=== PATIENT | male | born 1960 | race American Indian/Alaskan Native ===

== ENCOUNTER 2016-05-04 08:42 | Inpatient (IN) | payer MEDICARE ==
--- NOTE | 2016-05-04 16:10 | Emergency Department Report ---
ED Lower Extremity HPI - General Chief Complaint: Extremity Injury, Lower Stated Complaint: SEVERE LT LEG /FOOT PAIN Time Seen by Provider: 05/04/16 15:46 Source: patient Mode of arrival: Ambulatory Limitations: No Limitations - History of Present Illness Initial Comments: Patient is a 55-year-old male with history of Crohn's disease, PTSD and HIV with progression to AIDS taking medication inconsistently presenting today because of left toe pain. Patient has been having symptoms since February 23. States that he was at [facility] yesterday where he underwent a resection of the left toe necrosis and osteomyelitis and states that he was supposed to stay admitted for prolonged course of IV antibiotics but patient left AGAINST MEDICAL ADVICE because he requested coffee and did not receive it in a timely fashion. Patient mainly complaining about pain but denies any fever. - Related Data Home Medications Medication Instructions Recorded Confirmed Last Taken Abacavir/Dolutegravir/Lamivudi 1 each PO QDAY 01/14/16 05/05/16 Unknown [Triumeq Tablet] Dicyclomine [Bentyl] 20 mg PO TID 01/14/16 05/05/16 Unknown Previous Rx's Medication Instructions Recorded Last Taken Type traMADol [Ultram 50 MG tab] 50 mg PO Q6HR PRN #20 tablet 03/25/15 Unknown Rx Furosemide [Lasix] 20 mg PO QDAY #7 tablet 04/12/16 Unknown Rx HYDROcodone/APAP 5-325 [[place] 1 - 2 each PO Q6HR PRN #14 tablet 04/12/16 Unknown Rx 5/325] HYDROcodone/APAP 5-325 [[place] 1 - 2 each PO Q6HR PRN #14 tablet 04/22/16 Unknown Rx 5/325] Promethazine [Phenergan TAB] 25 mg PO Q6HR PRN #20 tab 04/22/16 Unknown Rx Promethazine [Phenergan] 25 mg [place] Q6HR PRN #10 supp.rect 04/22/16 Unknown Rx Allergies Allergy/AdvReac Type Severity Reaction Status Date / Time No Known Allergies Allergy Verified 09/07/15 11:34 ED Review of Systems ROS: Stated complaint: SEVERE LT LEG /FOOT PAIN Other details as noted in HPI Comment: All other systems reviewed and negative Constitutional: denies: chills, fever ENT: denies: congestion Respiratory: denies: cough Cardiovascular: denies: chest pain Gastrointestinal: abdominal pain (chronic abdominal pain). denies: vomiting Skin: lesions Psychiatric: denies: anxiety ED Past Medical Hx - Past Medical History Hx Liver Disease: Yes (HEP B) Hx Sickle Cell Disease: Yes Hx Psychiatric Treatment: Yes (IP and OP MANIC DEPRESSION) Hx HIV: Yes Additional medical history: PANCREATITIS. CROHN'S - Surgical History Hx Cholecystectomy: (colon resection) Hx Appendectomy: Yes Additional Surgical History: COLON. RIGHT HIP REPLACEMENT. Tonsillectomy - Social History Smoking Status: Current Every Day Smoker Substance Use Type: Alcohol - Medications Home Medications: Home Medications Medication Instructions Recorded Confirmed Last Taken Type traMADol [Ultram 50 MG tab] 50 mg PO Q6HR PRN #20 tablet 03/25/15 Unknown Rx Abacavir/Dolutegravir/Lamivudi 1 each PO QDAY 01/14/16 05/05/16 Unknown History [Triumeq Tablet] Dicyclomine [Bentyl] 20 mg PO TID 01/14/16 05/05/16 Unknown History Furosemide [Lasix] 20 mg PO QDAY #7 tablet 04/12/16 05/05/16 Unknown Rx HYDROcodone/APAP 5-325 [[place] 1 - 2 each PO Q6HR PRN #14 tablet 04/12/16 Unknown Rx 5/325] HYDROcodone/APAP 5-325 [[place] 1 - 2 each PO Q6HR PRN #14 tablet 04/22/16 Unknown Rx 5/325] Promethazine [Phenergan TAB] 25 mg PO Q6HR PRN #20 tab 04/22/16 05/05/16 Unknown Rx Promethazine [Phenergan] 25 mg [place] Q6HR PRN #10 supp.rect 04/22/16 05/05/16 Unknown Rx ED Physical Exam - General Limitations: No Limitations General appearance: alert, in no apparent distress - Eye Eye exam: Present: normal appearance - Neck Neck exam: Present: normal inspection - Respiratory Respiratory exam: Present: normal lung sounds bilaterally - Cardiovascular Cardiovascular Exam: Present: regular rate, normal heart sounds - GI/Abdominal GI/Abdominal exam: Present: soft. Absent: tenderness - Extremities Exam Extremities exam: Present: other (Left 2nd toe with mulitple sutures without any discharge, no fluctuance or active discharge, no crepitus, sensation intact , capillary refill < 2 seconds, has diffuse mild tenderness to the entire foot) - Neurological Exam Neurological exam: Present: alert, oriented X3 - Psychiatric Psychiatric exam: Present: other (labile affect) - Skin Skin exam: Present: intact ED Course Vital Signs 05/04/16 05/04/16 05/04/16 08:50 15:15 17:08 Temperature 98.2 F 98.1 F 98 F Pulse Rate 111 H 110 H 105 H Respiratory 20 16 Rate Blood Pressure 132/89 137/85 Blood Pressure 149/78 [Left] O2 Sat by Pulse 99 100 100 Oximetry 05/04/16 22:43 Temperature Pulse Rate 90 Respiratory 16 Rate Blood Pressure Blood Pressure 130/67 [Left] O2 Sat by Pulse 97 Oximetry - Reevaluation(s) Reevaluation #1: 05/05/16 00:51 Received paperwork from his stay at [place], he shouldn't did indeed have osteomyelitis of the left second toe and is status post amputation and left AMA yesterday. I spoke to patient about whether he wanted to stay for IV antibiotics. Patient states that he does want stay for treatment. - EJ/Peripheral Line Neck R Time Out Performed: Yes Indications: nurses unable to establis Skin Cleansed in Sterile Fashion: Yes Size: 20 Dressing Placed: Tegaderm Patient Tolerated Procedure: well Additional Comments: 2x attempts at right EJ without success; success with first attempt but stopped working after some time, second EJ IV placed with good flow ED Lower Extremity MDM - Lab Data Result diagrams: 05/04/16 16:47 05/04/16 16:47 - Medical Decision Making Patient does not appear clinically ill, concern for possible indolent osteomyelitis, exam however is unremarkable IV, labs, pain meds, xray, IVF due to mild tachycardia, reassess Critical care attestation.: If time is entered above; I have spent that time in minutes in the direct care of this critically ill patient, excluding procedure time. ED Disposition Clinical Impression: Osteomyelitis Qualifiers: Osteomyelitis location: foot Laterality: left Chronicity: subacute Qualified Code(s): M86.272 - Subacute osteomyelitis, left ankle and foot Disposition: OP ADMITTED IP TO THIS HOSP Is pt being admited?: Yes Does the pt Need Aspirin: No Condition: Serious Referrals: PRIMARY CARE, [Primary Care Provider] - 3-5 Days Time of Disposition: 02:00 (Discussed with hospitalist)
[2016-05-04] MEDS ORDERED: PERCOCET 5/325 PO ONE (16:13)
[2016-05-04] MEDS ORDERED: NACL 0.9% 1000 ML IV ONE (16:30)
[2016-05-04 17:03] LABS: Basophils % (Auto) 1.4 % (0.0-1.8); Eosinophils % (Auto) 2.8 % (0.0-4.3); Hematocrit 30.6 % (35.5-45.6); Mean Corpuscular HGB Conc 33 % (32-34); Mean Corpuscular Hemoglobin 31 pg (28-32); Mean Corpuscular Volume 93 fl (84-94); Platelet Count 227 K/mm3 (140-440); Red Blood Count 3.28 M/mm3 (3.65-5.03); Red Cell Distribution Width 14.9 % (13.2-15.2); White Blood Count 5.2 K/mm3 (4.5-11.0)
[2016-05-04 17:13] LABS: Blood Urea Nitrogen 7 mg/dL (9-20); Calcium 7.8 mg/dL (8.4-10.2); Carbon Dioxide 18 mmol/L (22-30); Chloride 107.1 mmol/L (98-107); Glucose 119 mg/dL (75-100); Potassium 3.3 mmol/L (3.6-5.0); Sodium 140 mmol/L (137-145)
[2016-05-04 17:14] LABS: Anion Gap 18 mmol/L
[2016-05-04] MEDS ORDERED: K-DUR PO ONE (17:48)
[2016-05-04] MEDS ORDERED: XYLOCAINE 1% MPF 5 mL INFILTRATI ONE (18:02)
[2016-05-04] MEDS ORDERED: VANCOMYCIN VIAL IV ONE (18:05)
[2016-05-04] MEDS ORDERED: ROCEPHIN 2,000 MG in NACL 0.9% 50 ML IV ONE (18:20)
[2016-05-04] MEDS ORDERED: VANCOMYCIN PHARMACY TO DOSE IV SCH (19:00)
[2016-05-04] MEDS ORDERED: KLOR-CON PO SCH (19:00)
[2016-05-04] MEDS ORDERED: ROCEPHIN/NS 2 GM/100 ML 100 ML IV ONE (19:30)
[2016-05-04] MEDS ORDERED: NACL 0.9% 1000 ML 1,000 ML ONE (19:53)
[2016-05-04] MEDS: K-DUR PO SCH (20:06)
[2016-05-04] MEDS: VANCOMYCIN VIAL 1,500 MG in NACL 0.9% 500 ML 500 ML IV SCH (20:46)
[2016-05-04 22:34] LABS: ISTAT Base Excess -7; ISTAT DEVICE 0; ISTAT HCO3 19.1; ISTAT PCO2 37.6 (35-45); ISTAT PH 7.314 (7.35-7.45); ISTAT PO2 88 (80-105); ISTAT SO2 96; ISTAT TCO2 20
--- NOTE | 2016-05-05 01:44 | Admit Criteria Form ---
Admission Criteria Documentation: OSTEOMYELITIS Clinical Indications for Admission to Inpatient Care (Place 'X' for any and all applicable criteria) Admission is indicated by ANY ONE of the following (1)(2)(3)(4)(5)(6): [ ] I. Significant systemic illness indicated by 2 or more of the following: [ ]a) Core (eg rectal) temperature greater or equal [id number](37.8C) in an adult [ ]b) Oral temperature[A] greater than or equal to 99.3 degrees F ( 37.4 degrees C) in an adult [ ]c) Heart rate greater than 90 beats per minute [ ]d) Respiratory rate greater than 20 breaths per minute or PaCO2 less than 32 mm Hg (4.3 kPa) [ ]e) White blood cell count > 12,000/mm3 (12 x109/L) or < 4000/mm3 ( 4 x109/L) or > 10% band cells [ ] II. Hemodynamic instability [ ] III. Severe pain requiring acute inpatient management [ ] IV. Bacteremia [ ] V. Mental status change (new) [ ] . Limb-threatening infection [ ] VII. Suspected necrotizing soft tissue infection (e.g., gas in tissue) [ ] VIII.Surgical intervention required (e.g., bone or soft tissue debridement, removal of foreign body, or revascularization procedure) not performable in outpatient or emergency department level of care(7) [ X] IX. Appropriate monitoring and therapy (IV antibiotics) cannot be immediately arranged for home or outpatient setting [ ] XI. Outpatient treatment failure (e.g., resistant organism identified, adverse medication effect, progression or lack of sufficient improvement of infection) [ ] XII. High-risk comorbid condition present including ANY ONE of the following : [ ]a) Poorly controlled diabetes (e.g., HbA1c greater than 10% (0.1)) [ ]b) Vascular insufficiency to affected area [ ]c) Cirrhosis [ ]d) Neutropenia [ ]e) Asplenia [ ]f) Immunosuppression (e.g., chronic systemic corticosteroid use) [ ]g) Symptomatic heart failure [ ] XIII.Joint involvement (e.g., septic arthritis) suspected [ ] XIV. Vertebral osteomyelitis [ ] XV. Skull-base osteomyelitis (e.g.,"malignant external otitis")[A](8)(9)(10 ) Extended stay beyond goal length of stay may be needed for(1)(3)(4)(5)(24)(25): [ ]a) Inadequate clinical response to antibiotics (e.g., continued fever, hypotension) [ ]b) Bacteremia [ ]c) Surgical intervention needed (e.g., beyond superficial debridement)(26) [ ]d) Vertebral osteomyelitis with spinal cord compression, abscess formation, or mechanical instability [ ]e) Antibiotic-resistant organism identified (e.g., methicillin-resistant Staphylococcal aureus) [ ]f) Deep venous thrombosis [ ]g) Unstable comorbidities (e.g., heart failure, renal insufficiency, immunosuppressed state)(28) The original [facility] [employer] content created by [employer] has been revised. The portions of the content which have been revised are identified through the use of italic text or in bold, and [facility] has neither reviewed nor approved the modified material. All other unmodified content is copyright [facility] 2016. Admission Criteria Met: Yes
--- NOTE | 2016-05-05 05:32 | History and Physical Report ---
[id number] with a history of HIV, unknown CD4 count, Crohn's disease, sickle cell, PTSD was admitted at [facility] where he was diagnosed with osteomyelitis of the left second toe, status post amputation of the distal toe on Sunday. Patient has been receiving IV antibiotics, he had some behavioral issues at the hospital, he stated that he left AMA however review of the records from [place] seen as if he was discharged. It's unclear what antibiotics the patient was discharged on. The patient is scheduled to receive 6 weeks of antibiotics Patient denies chest pain, palpitation, shortness of breath, cough, abdominal pain, hematochezia, dysuria, frequency, focal weakness, dysarthria, fever chills , polydipsia polyuria, hot or cold intolerance, easy bruisability, or rash or bleeding from mucosal membrane, rhinorrhea, epistaxis, earache, tinnitus, blurry vision, eye discharge, anxiety, depression. Other review of systems negative PAST SURGICAL HISTORY: Colon resection, tonsillectomy, appendectomy, right hip SOCIAL HISTORY: Smoke 2 pack a week, alcohol use, no drugs FAMILY HISTORY: Hypertension Medications and Allergies Allergies Allergy/AdvReac Type Severity Reaction Status Date / Time No Known Allergies Allergy Verified 09/07/15 11:34 Home Medications Medication Instructions Recorded Confirmed Last Taken Type traMADol [Ultram 50 MG tab] 50 mg PO Q6HR PRN #20 tablet 03/25/15 Unknown Rx Abacavir/Dolutegravir/Lamivudi 1 each PO QDAY 01/14/16 05/05/16 Unknown History [Triumeq Tablet] Dicyclomine [Bentyl] 20 mg PO TID 01/14/16 05/05/16 Unknown History Furosemide [Lasix] 20 mg PO QDAY #7 tablet 04/12/16 05/05/16 Unknown Rx HYDROcodone/APAP 5-325 [[place] 1 - 2 each PO Q6HR PRN #14 tablet 04/12/16 Unknown Rx 5/325] HYDROcodone/APAP 5-325 [[place] 1 - 2 each PO Q6HR PRN #14 tablet 04/22/16 Unknown Rx 5/325] Promethazine [Phenergan TAB] 25 mg PO Q6HR PRN #20 tab 04/22/16 05/05/16 Unknown Rx Promethazine [Phenergan] 25 mg [place] Q6HR PRN #10 supp.rect 04/22/16 05/05/16 Unknown Rx Depakote ER 500 mg PO DAILY 05/05/16 05/05/16 Unknown History risperiDONE 3 mg PO DAILY 05/05/16 05/05/16 Unknown History Active Meds: Active Medications Vancomycin HCl 1,500 mg/ (Sodium Chloride) 500 mls @ 250 mls/hr IV Q12H [facility] Last Admin: 05/04/16 20:46 Dose: 250 mls/hr Potassium Chloride (K-Dur) 40 meq PO QDAY [facility] Last Admin: 05/04/16 20:06 Dose: Not Given Vancomycin HCl (Vancomycin Pharmacy To Dose) 1 each IV PKCONSULT EWA PRN Reason: Protocol Exam - Physical Exam Narrative exam: Gen. appearance: Patient lying in bed, no apparent distress HEENT: Normocephalic, atraumatic, pupils equally round and reactive to light, extraocular movement intact, and no sclericterus,. No JVD or thyromegaly or nodule,neck supple, no carotid bruit ,mucous membranes moist, no exudate or erythema Heart: S1, S2, regular rate and rhythm Lungs: Clear to auscultation bilaterally, breathing comfortable Abdomen: Positive bowel sounds, nontender, nondistended, no organomegaly Extremity: Amputation of left distal second 2, swollen, mild tenderness, no erythema No edema, cyanosis, clubbing Skin: No rash, nodules, warm, dry Neuro: Oriented 3, cranial nerves II-12 intact, speech is fluent, motor and sensory intact - Constitutional Vitals: Temp Pulse Resp BP Pulse Ox 98 F 90 16 130/67 97 05/04/16 17:08 05/04/16 22:43 05/04/16 22:43 05/04/16 22:43 05/04/16 22:43 Results - Labs CBC & Chem 7: 05/04/16 16:47 05/04/16 16:47 Labs: Abnormal lab results 05/04/16 05/04/16 05/04/16 Range/Units 16:47 16:47 22:25 RBC 3.28 L (3.65-5.03) M/mm3 Hgb 10.0 L (11.8-15.2) gm/dl Hct 30.6 L (35.5-45.6) % [place] % (Auto) 12.3 H (0.0-7.3) % POC ABG pH 7.314 L (7.35-7.45) Potassium 3.3 L (3.6-5.0) mmol/L Chloride 107.1 H (98-107) mmol/L Carbon Dioxide 18 L (22-30) mmol/L BUN 7 L (9-20) mg/dL Creatinine 0.7 L (0.8-1.5) mg/dL Glucose 119 H (75-100) mg/dL Calcium 7.8 L (8.4-10.2) mg/dL Assessment and Plan Osteomyelitis of the left second toe, status post amputation Crohn's disease Hepatitis B AIDS Sickle cell PTSD Admits medicine Start empiric IV Vancomycin for now Will obtain cultures from [facility] Continue outpatient medication, Percocet for pain, start DVT prophylaxis
[2016-05-05 06:49] VITALS: BP 152/87
[2016-05-05] MEDS: VANCOMYCIN VIAL 1,500 MG in NACL 0.9% 500 ML 500 ML IV SCH (08:28)
--- NOTE | 2016-05-05 08:51 | XRay Report ---
Left second toe: The patient has amputation of the toe distal to the proximal phalanx. The soft tissues are somewhat irregular, swollen, and bandaged. There is a small ulceration on the tibial side. There is no gas in the soft tissues. The residual bone contour is intact with no erosion. The bone is well mineralized. The third digit also appears to be slightly swollen but no bone changes. Impression: Nonspecific soft tissue swelling with ulceration.
--- NOTE | 2016-05-05 11:26 | Progress Note ---
Assessment and Plan 1. Osteomyelitis of the left second toe status post amputation: Continue with IV vancomycin, cultures pending. 2. Crohn's disease: Continue with current management. 3. Hepatitis B: Continue with current management. 4. AIDS: Continue with HAART. 5. Sickle cell disease: Continue with current management. 6. PTSD: Continue with current management. 7. DVT prophylaxis: Continue with Lovenox 40 mg subcutaneous daily 8. Hypokalemia: Continue with KCl 40 mEq daily. Subjective Date of service: 05/05/16 Interval history: Slight pain left 2nd toe. Objective - Constitutional Vitals: Vital Signs - 12hr 05/05/16 06:47 Temperature 98.8 F Pulse Rate 103 H Respiratory 20 Rate Blood Pressure 152/87 [Left] O2 Sat by Pulse 100 Oximetry General appearance: Present: no acute distress, well-nourished - EENT Eyes: PERRL, EOM intact ENT: hearing intact, clear oral mucosa Ears: bilateral: normal - Neck Neck: supple, normal ROM - Respiratory Respiratory effort: normal Respiratory: bilateral: CTA - Breasts Breasts: normal - Cardiovascular Rhythm: regular Heart Sounds: Present: S1 & S2. Absent: gallop, rub Extremities: pulses intact, No edema, normal color, Full ROM Extremity abnormal: ulceration (left 2nd toe), other (amputation left 2nd toe) - Gastrointestinal General gastrointestinal: Present: soft, non-tender, non-distended, normal bowel sounds - Genitourinary Male genitourinary: normal - Integumentary Integumentary: clear, warm, dry - Musculoskeletal Musculoskeletal: 1, strength equal bilaterally - Neurologic Neurologic: moves all extremities - Psychiatric Psychiatric: memory intact, appropriate mood/affect, intact judgment & insight - Labs CBC & Chem 7: 05/04/16 16:47 05/04/16 16:47
[2016-05-05] MEDS: K-DUR PO SCH (11:31)
[2016-05-05] MEDS ORDERED: LOVENOX SUB-Q SCH (16:00)
== END 2016-05-05 15:00 | disposition left against medical advice (07) | DRG 977 ==
LOC: ED 08:42 → 3A 05-05 05:23
PROVIDERS: ADMIT Internal Medicine; ATTEND Family Medicine
PROC: 4A033R1 Measurement of Arterial Saturation, Peripheral, Percutaneous Approach (ICD-10-PCS; principal; 2016-05-04)
PROC: 05HP33Z Insertion of Infusion Device into Right External Jugular Vein, Percutaneous Approach (ICD-10-PCS; 2016-05-04)
DX: B20 Human immunodeficiency virus [HIV] disease (principal); M86.272 Subacute osteomyelitis, left ankle and foot; K50.90 Crohn's disease, unspecified, without complications; F33.9 Major depressive disorder, recurrent, unspecified; B19.10 Unspecified viral hepatitis B without hepatic coma; D57.1 Sickle-cell disease without crisis; F43.10 Post-traumatic stress disorder, unspecified; K76.9 Liver disease, unspecified; Z96.641 Presence of right artificial hip joint; F17.200 Nicotine dependence, unspecified, uncomplicated; Z89.429 Acquired absence of other toe(s), unspecified side; Z82.49 Family history of ischemic heart disease and other diseases of the circulatory system; E87.6 Hypokalemia
CPT/HCPCS: 36415; 80048; 82803; 85025; 86140; 87040; J0696; J3370; J7030; J7040

== ENCOUNTER 2016-05-06 21:50 | Emergency (ER) | payer MEDICARE ==
[2016-05-06 22:15] VITALS: BP 144/95
== END 2016-05-07 20:06 | disposition left against medical advice (07) ==
LOC: ED 21:50
DX: M79.605 Pain in left leg (principal); Z53.21 Procedure and treatment not carried out due to patient leaving prior to being seen by health care provider

== ENCOUNTER 2016-05-24 13:48 | Emergency (ER) | payer MEDICARE | END 2016-05-24 15:13 | disposition left against medical advice (07) | LOC: ED 13:48 | DX: M79.1 Myalgia (principal); Z53.21 Procedure and treatment not carried out due to patient leaving prior to being seen by health care provider ==

== ENCOUNTER 2016-07-16 15:06 | Emergency (ER) | payer MEDICARE | END 2016-07-16 15:07 | disposition left against medical advice (07) | LOC: ED 15:06 | DX: R42 Dizziness and giddiness (principal); Z53.21 Procedure and treatment not carried out due to patient leaving prior to being seen by health care provider ==

== ENCOUNTER 2016-07-19 01:13 | Emergency (ER) | payer MEDICARE ==
[2016-07-19 04:36] LABS: Basophils % (Auto) 0.9 % (0.0-1.8); Eosinophils % (Auto) 2.9 % (0.0-4.3); Mean Corpuscular HGB Conc 33 % (32-34); Mean Corpuscular Hemoglobin 30 pg (28-32); Mean Corpuscular Volume 89 fl (84-94); Platelet Count 221 K/mm3 (140-440); Red Blood Count 3.69 M/mm3 (3.65-5.03); Red Cell Distribution Width 14.2 % (13.2-15.2); White Blood Count 6.3 K/mm3 (4.5-11.0)
[2016-07-19 05:02] LABS: Alanine Aminotransferase 20 units/L (7-56); Albumin 2.8 g/dL (3.9-5); Albumin/Globulin Ratio 0.6 %; Alkaline Phosphatase 82 units/L (35-129); Anion Gap 15 mmol/L; Bilirubin,Total 0.2 mg/dL (0.1-1.2); Blood Urea Nitrogen 7 mg/dL (9-20); Calcium 8.1 mg/dL (8.4-10.2); Carbon Dioxide 24 mmol/L (22-30); Chloride 99.7 mmol/L (98-107); Glucose 91 mg/dL (75-100); Sodium 135 mmol/L (137-145); Total Protein 7.7 g/dL (6.3-8.2)
--- NOTE | 2016-07-19 11:48 | Emergency Department Report ---
ED General Adult HPI - General Chief complaint: Pain General Stated complaint: BODY AND FEET PAIN/RECTAL BLEEDING/COUGH Time Seen by Provider: 07/19/16 10:27 Source: patient Mode of arrival: Ambulatory Limitations: No Limitations - History of Present Illness Initial comments: Patient is poorly communicative. He has a history of presume of schizophrenia and is on respiratory known. He is also HIV positive. He states he is hurting all over. He states he occasionally sees blood on his toilet paper but is not having any active bleeding right now. He is somewhat difficult to understand. He comes to the emergency department with a suitcase stating that he would like to be admitted. It is difficult to ascertain the reason why. He admits to having chronic pain. He's had no recent fever. Review of his prior medical records indicates that he had osteomyelitis of his toe and received 6 weeks of antibiotics for this in 2015 through April 2016. He doesn't complain specifically of his toe. He just stated that both his feet are hurting and he has arthralgias in general. -: month(s) Location: upper extremity, lower extremity Radiation: non-radiation Quality: aching Consistency: intermittent Improves with: none Worsens with: none Associated Symptoms: denies other symptoms Treatments Prior to Arrival: none - Related Data Home Medications Medication Instructions Recorded Confirmed Last Taken Abacavir/Dolutegravir/Lamivudi 1 each PO QDAY 01/14/16 05/05/16 Unknown [Triumeq Tablet] Dicyclomine [Bentyl] 20 mg PO TID 01/14/16 05/05/16 Unknown Depakote ER 500 mg PO DAILY 05/05/16 05/05/16 Unknown risperiDONE 3 mg PO DAILY 05/05/16 05/05/16 Unknown Previous Rx's Medication Instructions Recorded Last Taken Type Furosemide [Lasix] 20 mg PO QDAY #7 tablet 04/12/16 Unknown Rx HYDROcodone/APAP 5-325 [[place] 1 - 2 each PO Q6HR PRN #14 tablet 04/12/16 Unknown Rx 5/325] HYDROcodone/APAP 5-325 [[place] 1 - 2 each PO Q6HR PRN #14 tablet 04/22/16 Unknown Rx 5/325] Promethazine [Phenergan TAB] 25 mg PO Q6HR PRN #20 tab 12/31/16 Unknown Rx Promethazine [Phenergan] 25 mg [place] Q6HR PRN #10 supp.rect 04/22/16 Unknown Rx traMADol [Ultram] 50 mg PO Q6HR PRN #14 tablet 07/19/16 Unknown Rx Allergies Allergy/AdvReac Type Severity Reaction Status Date / Time No Known Allergies Allergy Verified 09/07/15 11:34 ED Review of Systems ROS: Stated complaint: BODY AND FEET PAIN/RECTAL BLEEDING/COUGH Other details as noted in HPI Constitutional: denies: chills, fever Eyes: denies: eye pain, eye discharge, vision change ENT: denies: ear pain, throat pain Respiratory: denies: cough, shortness of breath, wheezing Cardiovascular: denies: chest pain, palpitations Endocrine: no symptoms reported Gastrointestinal: as per HPI. denies: abdominal pain, nausea, diarrhea Genitourinary: denies: urgency, dysuria Musculoskeletal: denies: back pain, joint swelling, arthralgia Skin: denies: rash, lesions Neurological: denies: headache, weakness, paresthesias Psychiatric: denies: anxiety, depression Hematological/Lymphatic: denies: easy bleeding, easy bruising ED Past Medical Hx - Past Medical History Previous Medical History?: Yes Hx Liver Disease: Yes (HEP B) Hx Sickle Cell Disease: Yes Hx Psychiatric Treatment: Yes (IP and OP MANIC DEPRESSION) Hx HIV: Yes Additional medical history: PANCREATITIS. CROHN'S - Surgical History Past Surgical History?: Yes Hx Cholecystectomy: (colon resection) Hx Appendectomy: Yes Additional Surgical History: COLON. RIGHT HIP REPLACEMENT. Tonsillectomy. left second toe removed - Social History Smoking Status: Current Every Day Smoker Substance Use Type: Alcohol - Medications Home Medications: Home Medications Medication Instructions Recorded Confirmed Last Taken Type Abacavir/Dolutegravir/Lamivudi 1 each PO QDAY 01/14/16 05/05/16 Unknown History [Triumeq Tablet] Dicyclomine [Bentyl] 20 mg PO TID 01/14/16 05/05/16 Unknown History Furosemide [Lasix] 20 mg PO QDAY #7 tablet 04/12/16 05/05/16 Unknown Rx HYDROcodone/APAP 5-325 [[place] 1 - 2 each PO Q6HR PRN #14 tablet 04/12/16 Unknown Rx 5/325] HYDROcodone/APAP 5-325 [[place] 1 - 2 each PO Q6HR PRN #14 tablet 04/22/16 Unknown Rx 5/325] Promethazine [Phenergan TAB] 25 mg PO Q6HR PRN #20 tab 04/22/16 05/05/16 Unknown Rx Promethazine [Phenergan] 25 mg [place] Q6HR PRN #10 supp.rect 04/22/16 05/05/16 Unknown Rx Depakote ER 500 mg PO DAILY 05/05/16 05/05/16 Unknown History risperiDONE 3 mg PO DAILY 05/05/16 05/05/16 Unknown History traMADol [Ultram] 50 mg PO Q6HR PRN #14 tablet 07/19/16 Unknown Rx ED Physical Exam - General Limitations: No Limitations General appearance: alert, in no apparent distress, anxious - Head Head exam: Present: atraumatic, normocephalic - Eye Eye exam: Present: normal appearance. Absent: scleral icterus - ENT ENT exam: Present: normal exam, mucous membranes moist - Neck Neck exam: Present: normal inspection - Respiratory Respiratory exam: Present: normal lung sounds bilaterally. Absent: respiratory distress - Cardiovascular Cardiovascular Exam: Present: regular rate, normal rhythm. Absent: systolic murmur, diastolic murmur, rubs, gallop - GI/Abdominal GI/Abdominal exam: Present: soft, normal bowel sounds. Absent: distended, tenderness, guarding, rebound, rigid - Rectal Rectal exam: Present: deferred - Extremities Exam Extremities exam: Present: normal inspection, other (patient does have 1+ ankle and pedal edema bilaterally. He has distal amputation of the second toe. The stump looks fine and there is no drainage. It is completely healed. The toe is somewhat hyperpigmented but not gangrenous.) - Back Exam Back exam: Present: normal inspection - Neurological Exam Neurological exam: Present: alert, oriented X3, CN II-XII intact. Absent: motor sensory deficit - Psychiatric Psychiatric exam: Present: anxious, flat affect - Skin Skin exam: Present: warm, dry, intact, normal color. Absent: rash ED Course Vital Signs 07/19/16 03:38 Temperature 98.1 F Pulse Rate 115 H Respiratory 18 Rate Blood Pressure 149/87 O2 Sat by Pulse 99 Oximetry - Reevaluation(s) Reevaluation #1: The patient seemed to have some keys management issues. I had case management see him. I don't think he has any criteria for acute hospitalization. I will refer him back to his IV clinic. He has a history of Crohn's according to the record. Intermittent rectal bleeding is not surprising with that. He will be referred to GI if he does not have an appointment. He has chronic pain he will be given Ultram for that. 07/19/16 11:47 Reevaluation #2: Jani management tells me the [facility] 07/19/16 11:51 ED Medical Decision Making - Lab Data Result diagrams: 07/19/16 04:09 07/19/16 04:09 Critical care attestation.: If time is entered above; I have spent that time in minutes in the direct care of this critically ill patient, excluding procedure time. ED Disposition Clinical Impression: HIV infection, Rectal bleeding Crohns disease Qualifiers: Gastrointestinal tract location: unspecified location Digestive disease complication type: unspecified complication Qualified Code(s): K50.919 - Crohn' s disease, unspecified, with unspecified complications Bipolar disorder (manic depression) Qualifiers: Active/Remission status: remission status unspecified Qualified Code(s): F31.9 - Bipolar disorder, unspecified Disposition: DISCHARGED TO HOME OR SELFCARE Is pt being admited?: No Does the pt Need Aspirin: No Condition: Stable Instructions: Crohn Disease (ED), Rectal Bleeding (ED), Human Immunodeficiency Virus Infection (ED), Chronic Pain (ED) Additional Instructions: Follow-up with your infectious to see his clinic and door technician. If you do not have a door technician I've given you a referral. Return any acute change or problem. Prescriptions: traMADol [Ultram] 50 mg PO Q6HR PRN #14 tablet PRN Reason: Pain Referrals: PRIMARY CARE, [Primary Care Provider] - 3-5 Days usual, HIV clinic [Other] - 3-5 Days [facility] [Provider Group] - 3-5 Days Time of Disposition: 11:51
[2016-07-19] MEDS ORDERED: ULTRAM PO ONE (11:52)
[2016-07-19 12:16] VITALS: BP 126/68
== END 2016-07-19 12:17 | disposition home or self-care (01) ==
LOC: ED 01:13
DX: K50.919 Crohn's disease, unspecified, with unspecified complications (principal); F31.9 Bipolar disorder, unspecified; K62.5 Hemorrhage of anus and rectum; D57.00 Hb-SS disease with crisis, unspecified; F17.200 Nicotine dependence, unspecified, uncomplicated
CPT/HCPCS: 36415; 80053; 85025; 99283

== ENCOUNTER 2016-08-07 01:53 | Emergency (ER) | payer MEDICARE ==
[2016-08-07 04:32] LABS: Alanine Aminotransferase 33 units/L (7-56); Albumin 3.1 g/dL (3.9-5); Albumin/Globulin Ratio 0.7 %; Alkaline Phosphatase 93 units/L (35-129); Anion Gap 14 mmol/L; BUN/Creatinine Ratio 5.71; Bilirubin,Total 0.2 mg/dL (0.1-1.2); Blood Urea Nitrogen 4 mg/dL (9-20); Calcium 8.3 mg/dL (8.4-10.2); Carbon Dioxide 25 mmol/L (22-30); Chloride 101.9 mmol/L (98-107); Glucose 111 mg/dL (75-100); Lipase 47 units/L (13-60); Potassium 3.7 mmol/L (3.6-5.0); Sodium 137 mmol/L (137-145); Total Protein 7.7 g/dL (6.3-8.2)
[2016-08-07 04:38] LABS: Basophils % (Auto) 1.4 % (0.0-1.8); Eosinophils % (Auto) 4.7 % (0.0-4.3); Hematocrit 37.8 % (35.5-45.6); Hemoglobin 12.5 gm/dl (11.8-15.2); Mean Corpuscular HGB Conc 33 % (32-34); Mean Corpuscular Hemoglobin 30 pg (28-32); Mean Corpuscular Volume 91 fl (84-94); Platelet Count 160 K/mm3 (140-440); Red Blood Count 4.17 M/mm3 (3.65-5.03); Red Cell Distribution Width 14.4 % (13.2-15.2)
[2016-08-07 07:59] LABS: Bilirubin,Urine NEG (Negative); Blood,Urine SM (Negative); Ketones,Urine NEG (Negative); Leukocyte Esterase,Urine NEG (Negative); Nitrite,Urine NEG (Negative); Urobilinogen,Urine < 2.0 mg/dL (<2.0); WBC,Urine < 1.0 /HPF (0.0-6.0)
[2016-08-07 08:05] LABS: Protein,Urine 300 mg/dL mg/dL (Negative)
--- NOTE | 2016-08-07 08:44 | Emergency Department Report ---
ED General Adult HPI - General Chief complaint: Abdominal Pain Stated complaint: ANKLE/FEET SWOLLEN PAIN Time Seen by Provider: 08/07/16 08:12 Source: patient Mode of arrival: Ambulatory Limitations: Physical Limitation - History of Present Illness Initial comments: 56-year-old male presents to the emergency department complaining of pain and swelling in both feet and ankles. Symptoms have been present for approximately one week. He reports constant aching pain that does not radiate. He states the pain is caused his Crohn's flareup and he is having diarrhea with occasional blood in it. He denies abdominal pain, chest pain, shortness of breath, nausea, or vomiting. There are no other complaints. -: Gradual, week(s) (1) Location: left, right, upper extremity, lower extremity Radiation: non-radiation Severity scale (0 -10): 4 Quality: aching Consistency: constant Improves with: none Worsens with: none Treatments Prior to Arrival: none - Related Data Home Medications Medication Instructions Recorded Confirmed Last Taken Abacavir/Dolutegravir/Lamivudi 1 each PO QDAY 01/14/16 05/05/16 Unknown [Triumeq Tablet] Dicyclomine [Bentyl] 20 mg PO TID 01/14/16 05/05/16 Unknown Depakote ER 500 mg PO DAILY 05/05/16 05/05/16 Unknown risperiDONE 3 mg PO DAILY 05/05/16 05/05/16 Unknown Previous Rx's Medication Instructions Recorded Last Taken Type Furosemide [Lasix] 20 mg PO QDAY #7 tablet 04/12/16 Unknown Rx HYDROcodone/APAP 5-325 [[place] 1 - 2 each PO Q6HR PRN #14 tablet 04/12/16 Unknown Rx 5/325] HYDROcodone/APAP 5-325 [[place] 1 - 2 each PO Q6HR PRN #14 tablet 04/22/16 Unknown Rx 5/325] Promethazine [Phenergan TAB] 25 mg PO Q6HR PRN #20 tab 04/22/16 Unknown Rx Promethazine [Phenergan] 25 mg [place] Q6HR PRN #10 supp.rect 04/22/16 Unknown Rx traMADol [Ultram] 50 mg PO Q6HR PRN #14 tablet 08/07/16 Unknown Rx Allergies Allergy/AdvReac Type Severity Reaction Status Date / Time No Known Allergies Allergy Verified 09/07/15 11:34 ED Review of Systems ROS: Stated complaint: ANKLE/FEET SWOLLEN PAIN Other details as noted in HPI Comment: All other systems reviewed and negative Gastrointestinal: diarrhea Musculoskeletal: joint swelling, arthralgia ED Past Medical Hx - Past Medical History Previous Medical History?: Yes Hx Liver Disease: Yes (HEP B) Hx Sickle Cell Disease: Yes Hx Psychiatric Treatment: Yes (IP and OP MANIC DEPRESSION) Hx HIV: Yes Additional medical history: PANCREATITIS. CROHN'S - Surgical History Past Surgical History?: Yes Hx Cholecystectomy: (colon resection) Hx Appendectomy: Yes Additional Surgical History: COLON. RIGHT HIP REPLACEMENT. Tonsillectomy. left second toe removed - Family History Family history: no significant - Social History Smoking Status: Current Every Day Smoker Substance Use Type: Alcohol - Medications Home Medications: Home Medications Medication Instructions Recorded Confirmed Last Taken Type Abacavir/Dolutegravir/Lamivudi 1 each PO QDAY 01/14/16 05/05/16 Unknown History [Triumeq Tablet] Dicyclomine [Bentyl] 20 mg PO TID 01/14/16 05/05/16 Unknown History Furosemide [Lasix] 20 mg PO QDAY #7 tablet 04/12/16 05/05/16 Unknown Rx HYDROcodone/APAP 5-325 [[place] 1 - 2 each PO Q6HR PRN #14 tablet 04/12/16 Unknown Rx 5/325] HYDROcodone/APAP 5-325 [[place] 1 - 2 each PO Q6HR PRN #14 tablet 04/22/16 Unknown Rx 5/325] Promethazine [Phenergan TAB] 25 mg PO Q6HR PRN #20 tab 04/22/16 05/05/16 Unknown Rx Promethazine [Phenergan] 25 mg [place] Q6HR PRN #10 supp.rect 04/22/16 05/05/16 Unknown Rx Depakote ER 500 mg PO DAILY 05/05/16 05/05/16 Unknown History risperiDONE 3 mg PO DAILY 05/05/16 05/05/16 Unknown History traMADol [Ultram] 50 mg PO Q6HR PRN #14 tablet 08/07/16 Unknown Rx ED Physical Exam - General Limitations: No Limitations General appearance: alert, in no apparent distress - Head Head exam: Present: atraumatic, normocephalic - Eye Eye exam: Present: normal appearance, PERRL, EOMI - ENT ENT exam: Present: normal exam, normal orophraynx, mucous membranes moist - Neck Neck exam: Present: normal inspection, full ROM. Absent: tenderness - Respiratory Respiratory exam: Present: normal lung sounds bilaterally. Absent: respiratory distress - Cardiovascular Cardiovascular Exam: Present: regular rate, normal rhythm, normal heart sounds - GI/Abdominal GI/Abdominal exam: Present: soft, normal bowel sounds. Absent: distended, tenderness - Extremities Exam Extremities exam: Present: full ROM, joint swelling (bilateral ankles and wrists , no erythema). Absent: tenderness - Back Exam Back exam: Present: normal inspection, full ROM. Absent: tenderness - Neurological Exam Neurological exam: Present: alert, oriented X3. Absent: motor sensory deficit - Skin Skin exam: Present: warm, dry, intact ED Course Vital Signs 08/07/16 08/07/16 08/07/16 03:19 07:55 07:56 Temperature 97.8 F Pulse Rate 92 H 84 Respiratory 18 16 16 Rate Blood Pressure 159/97 Blood Pressure 188/86 [Left] O2 Sat by Pulse 98 99 99 Oximetry ED Medical Decision Making - Lab Data Result diagrams: 08/07/16 03:55 08/07/16 03:55 - Medical Decision Making Lab results reviewed and discussed with the patient. Patient has ambulated in the emergency department without difficulty. Patient will be discharged home at this time. - Differential Diagnosis arthralgia, arthritis, Crohn's flare Critical care attestation.: If time is entered above; I have spent that time in minutes in the direct care of this critically ill patient, excluding procedure time. ED Disposition Clinical Impression: Arthralgia of ankle Qualifiers: Laterality: bilateral Qualified Code(s): M25.571 - Pain in right ankle and joints of right foot; M25.572 - Pain in left ankle and joints of left foot Disposition: DISCHARGED TO HOME OR SELFCARE Is pt being admited?: No Condition: Stable Instructions: Arthralgia (ED) Prescriptions: traMADol [Ultram] 50 mg PO Q6HR PRN #14 tablet PRN Reason: Pain Referrals: LISHA VILLA DPM [Primary Care Provider] - 3-5 Days Time of Disposition: 12:52
[2016-08-07 08:46] LABS: INR 1.08 (0.87-1.13)
[2016-08-07 13:15] VITALS: BP 138/79
== END 2016-08-07 13:15 | disposition home or self-care (01) ==
LOC: ED 01:53
DX: M25.571 Pain in right ankle and joints of right foot (principal); M25.572 Pain in left ankle and joints of left foot; F32.9 Major depressive disorder, single episode, unspecified; D57.00 Hb-SS disease with crisis, unspecified; F17.200 Nicotine dependence, unspecified, uncomplicated
CPT/HCPCS: 36415; 80053; 80164; 81001; 83690; 83880; 85025; 85610; 85730; 99283

== ENCOUNTER 2016-08-08 02:21 | Emergency (ER) | payer MEDICARE ==
[2016-08-08 02:50] LABS: Basophils % (Auto) 1.2 % (0.0-1.8); Eosinophils % (Auto) 2.5 % (0.0-4.3); Hemoglobin 12.5 gm/dl (11.8-15.2); Mean Corpuscular HGB Conc 33 % (32-34); Mean Corpuscular Hemoglobin 30 pg (28-32); Mean Corpuscular Volume 90 fl (84-94); Platelet Count 156 K/mm3 (140-440); Red Blood Count 4.23 M/mm3 (3.65-5.03); Red Cell Distribution Width 14.6 % (13.2-15.2); White Blood Count 5.4 K/mm3 (4.5-11.0)
[2016-08-08 03:09] LABS: Anion Gap 17 mmol/L; BUN/Creatinine Ratio 5.55; Blood Urea Nitrogen 5 mg/dL (9-20); Calcium 8.1 mg/dL (8.4-10.2); Carbon Dioxide 24 mmol/L (22-30); Chloride 98.9 mmol/L (98-107); Glucose 119 mg/dL (75-100); Potassium 3.5 mmol/L (3.6-5.0); Sodium 136 mmol/L (137-145)
--- NOTE | 2016-08-08 10:12 | Emergency Department Report ---
HPI - General Chief Complaint: Nausea/Vomiting/Diarrhea Time Seen by Provider: 08/08/16 10:00 - HPI HPI: Room 7 The patient is a 56-year-old female presenting with a chief complaint of nausea and vomiting. Patient states for approximately 8 days she has had nausea vomiting in addition to diarrhea. Patient states symptoms feel similar to his previous Crohn's flares. Patient denies any history of fever. 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 Location: Gastrointestinal system Duration: 8 Days Quality: Feels like Crohn's Severity: Moderate Modifying factors: [see above] Context: [see above] Mode of transportation: [not driving] ED Past Medical Hx - Past Medical History Previous Medical History?: Yes Hx Liver Disease: Yes (HEP B) Hx Sickle Cell Disease: Yes Hx Psychiatric Treatment: Yes (IP and OP MANIC DEPRESSION) Hx HIV: Yes Additional medical history: PANCREATITIS. CROHN'S - Surgical History Past Surgical History?: Yes Hx Cholecystectomy: (colon resection) Hx Appendectomy: Yes Additional Surgical History: COLON. RIGHT HIP REPLACEMENT. Tonsillectomy. left second toe removed - Family History Family history: no significant - Social History Smoking Status: Current Every Day Smoker Substance Use Type: Alcohol - Medications Home Medications: Home Medications Medication Instructions Recorded Confirmed Last Taken Type Abacavir/Dolutegravir/Lamivudi 1 each PO QDAY 01/14/16 05/05/16 Unknown History [Triumeq Tablet] Dicyclomine [Bentyl] 20 mg PO TID 01/14/16 05/05/16 Unknown History Furosemide [Lasix] 20 mg PO QDAY #7 tablet 04/12/16 05/05/16 Unknown Rx HYDROcodone/APAP 5-325 [[place] 1 - 2 each PO Q6HR PRN #14 tablet 04/12/16 Unknown Rx 5/325] HYDROcodone/APAP 5-325 [[place] 1 - 2 each PO Q6HR PRN #14 tablet 04/22/16 Unknown Rx 5/325] Promethazine [Phenergan TAB] 25 mg PO Q6HR PRN #20 tab 04/22/16 05/05/16 Unknown Rx Promethazine [Phenergan] 25 mg [place] Q6HR PRN #10 supp.rect 04/22/16 05/05/16 Unknown Rx Depakote ER 500 mg PO DAILY 05/05/16 05/05/16 Unknown History risperiDONE 3 mg PO DAILY 05/05/16 05/05/16 Unknown History traMADol [Ultram] 50 mg PO Q6HR PRN #14 tablet 08/07/16 Unknown Rx Diphenoxylate/Atropine [Lomotil] 1 tab PO QID PRN #20 tablet 08/08/16 Unknown Rx Ondansetron [Zofran TAB] 8 mg PO Q8HR PRN #20 tablet 08/08/16 Unknown Rx Prednisone [predniSONE 10 mg 10 mg PO .TAPER #1 tab.ds.pk 08/08/16 Unknown Rx (6-Day Pack, 21 Tabs)] ED Review of Systems ROS: Stated complaint: ABD PAIN/VOMITING Other details as noted in HPI Comment: All other systems reviewed and negative Constitutional: denies: chills, fever Eyes: denies: eye pain, eye discharge, vision change ENT: denies: ear pain, throat pain Respiratory: denies: cough, shortness of breath, wheezing Cardiovascular: denies: chest pain, palpitations Endocrine: no symptoms reported Gastrointestinal: nausea, vomiting, diarrhea. denies: abdominal pain Genitourinary: denies: urgency, dysuria Musculoskeletal: denies: back pain, joint swelling, arthralgia Skin: denies: rash, lesions Neurological: denies: headache, weakness, paresthesias Psychiatric: denies: anxiety, depression Hematological/Lymphatic: denies: easy bleeding, easy bruising Physical Exam - Physical Exam Vital Signs: Vital Signs 08/08/16 02:29 Temperature 98.3 F Pulse Rate 110 H Respiratory 18 Rate Blood Pressure 150/100 O2 Sat by Pulse 100 Oximetry Physical Exam: GENERAL: The patient is a thin male lying on stretcher not appearing to be in acute distress. Patient sleeping but easily awakened by voice HEENT: Normocephalic. Atraumatic. Extraocular motions are intact. Patient has moist mucous membranes. NECK: Supple. Trachea midline CHEST/LUNGS: Clear to auscultation. There is no respiratory distress noted. HEART/CARDIOVASCULAR: Regular. There is no tachycardia. There is no gallop rub or murmur. ABDOMEN: Abdomen is soft, nontender. Patient has normal bowel sounds. There is no abdominal distention. SKIN: There is no rash. There is no edema. There is no diaphoresis. NEURO: The patient is asleep but is easily awakened by voice and becomes alert. The patient is cooperative. The patient has normal speech MUSCULOSKELETAL: There is no evidence of acute injury. ED Course Vital Signs 08/08/16 02:29 Temperature 98.3 F Pulse Rate 110 H Respiratory 18 Rate Blood Pressure 150/100 O2 Sat by Pulse 100 Oximetry ED Medical Decision Making - Lab Data Result diagrams: 08/08/16 02:33 08/08/16 02:33 Laboratory Tests 08/08/16 08/08/16 08/08/16 02:30 02:33 02:33 WBC 5.4 RBC 4.23 Hgb 12.5 Hct 38.0 MCV 90 MCH 30 MCHC 33 RDW 14.6 Plt Count 156 Lymph % (Auto) 35.5 H [place] % (Auto) 13.4 H Eos % (Auto) 2.5 Baso % (Auto) 1.2 Lymph # 1.9 [place] # 0.7 Eos # 0.1 Baso # 0.1 Seg Neutrophils % 47.4 Seg Neutrophils # 2.5 Sodium 136 L Potassium 3.5 L Chloride 98.9 Carbon Dioxide 24 Anion Gap 17 BUN 5 L Creatinine 0.9 Estimated GFR > 60 BUN/Creatinine Ratio 5.55 Glucose 119 H Calcium 8.1 L Total Bilirubin 0.4 Direct Bilirubin < 0.2 AST 48 H ALT 34 Alkaline Phosphatase 85 Total Protein 8.2 Albumin 3.4 L Albumin/Globulin Ratio 0.7 Amylase 167 H Lipase 97 H Urine Color Urine Turbidity Urine pH Ur Specific [place] Urine Protein Urine Glucose (UA) Urine Ketones Urine Blood Urine Nitrite Urine Bilirubin Urine Urobilinogen Ur Leukocyte Esterase Urine WBC (Auto) Urine RBC (Auto) 08/08/16 11:36 WBC RBC Hgb Hct MCV MCH MCHC RDW Plt Count Lymph % (Auto) [place] % (Auto) Eos % (Auto) Baso % (Auto) Lymph # [place] # Eos # Baso # Seg Neutrophils % Seg Neutrophils # Sodium Potassium Chloride Carbon Dioxide Anion Gap BUN Creatinine Estimated GFR BUN/Creatinine Ratio Glucose Calcium Total Bilirubin Direct Bilirubin AST ALT Alkaline Phosphatase Total Protein Albumin Albumin/Globulin Ratio Amylase Lipase Urine Color Straw Urine Turbidity Clear Urine pH 6.0 Ur Specific [place] 1.003 Urine Protein 30 mg/dl Urine Glucose (UA) Neg Urine Ketones Neg Urine Blood Mod Urine Nitrite Neg Urine Bilirubin Neg Urine Urobilinogen < 2.0 Ur Leukocyte Esterase Neg Urine WBC (Auto) < 1.0 Urine RBC (Auto) 3.0 Laboratory Tests 08/08/16 08/08/16 08/08/16 02:30 02:33 02:33 WBC 5.4 RBC 4.23 Hgb 12.5 Hct 38.0 MCV 90 MCH 30 MCHC 33 RDW 14.6 Plt Count 156 Lymph % (Auto) 35.5 H [place] % (Auto) 13.4 H Eos % (Auto) 2.5 Baso % (Auto) 1.2 Lymph # 1.9 [place] # 0.7 Eos # 0.1 Baso # 0.1 Seg Neutrophils % 47.4 Seg Neutrophils # 2.5 Sodium 136 L Potassium 3.5 L Chloride 98.9 Carbon Dioxide 24 Anion Gap 17 BUN 5 L Creatinine 0.9 Estimated GFR > 60 BUN/Creatinine Ratio 5.55 Glucose 119 H Calcium 8.1 L Total Bilirubin 0.4 Direct Bilirubin < 0.2 AST 48 H ALT 34 Alkaline Phosphatase 85 Total Creatine Kinase Total Protein 8.2 Albumin 3.4 L Albumin/Globulin Ratio 0.7 Amylase 167 H Lipase 97 H Urine Color Urine Turbidity Urine pH Ur Specific [place] Urine Protein Urine Glucose (UA) Urine Ketones Urine Blood Urine Nitrite Urine Bilirubin Urine Urobilinogen Ur Leukocyte Esterase Urine WBC (Auto) Urine RBC (Auto) 08/08/16 08/08/16 11:36 13:14 WBC RBC Hgb Hct MCV MCH MCHC RDW Plt Count Lymph % (Auto) [place] % (Auto) Eos % (Auto) Baso % (Auto) Lymph # [place] # Eos # Baso # Seg Neutrophils % Seg Neutrophils # Sodium Potassium Chloride Carbon Dioxide Anion Gap BUN Creatinine Estimated GFR BUN/Creatinine Ratio Glucose Calcium Total Bilirubin Direct Bilirubin AST ALT Alkaline Phosphatase Total Creatine Kinase 455 H Total Protein Albumin Albumin/Globulin Ratio Amylase Lipase Urine Color Straw Urine Turbidity Clear Urine pH 6.0 Ur Specific [place] 1.003 Urine Protein 30 mg/dl Urine Glucose (UA) Neg Urine Ketones Neg Urine Blood Mod Urine Nitrite Neg Urine Bilirubin Neg Urine Urobilinogen < 2.0 Ur Leukocyte Esterase Neg Urine WBC (Auto) < 1.0 Urine RBC (Auto) 3.0 - Differential Diagnosis gastroenteritis, Crohn's flare Critical care attestation.: If time is entered above; I have spent that time in minutes in the direct care of this critically ill patient, excluding procedure time. ED Disposition Clinical Impression: Crohns disease, Nausea vomiting and diarrhea Disposition: DISCHARGED TO HOME OR SELFCARE Is pt being admited?: No Does the pt Need Aspirin: No Condition: Stable Instructions: Acute Nausea and Vomiting (ED) Additional Instructions: Return to the emergency department immediately should you develop worsening symptoms, fever, inability to tolerate food or liquid or any other concerns. Prescriptions: Diphenoxylate/Atropine [Lomotil] 1 tab PO QID PRN #20 tablet PRN Reason: Diarrhea Ondansetron [Zofran TAB] 8 mg PO Q8HR PRN #20 tablet PRN Reason: Nausea Prednisone [predniSONE 10 mg (6-Day Pack, 21 Tabs)] 10 mg PO .TAPER #1 tab.ds.pk Referrals: BOBBI RODRIGUEZ MD [Staff Physician] - 3-5 Days (Dr. Rodriguez is a air traffic control specialist center. Please follow up with him for further evaluation) Time of Disposition: 13:54
[2016-08-08] MEDS: ZOFRAN IV ONE (10:27)
[2016-08-08] MEDS: NACL 0.9% 1000 ML 1,000 ML IV ONE (10:27)
[2016-08-08 10:45] LABS: Alanine Aminotransferase 34 units/L (7-56); Albumin 3.4 g/dL (3.9-5); Albumin/Globulin Ratio 0.7 %; Alkaline Phosphatase 85 units/L (35-129); Amylase 167 units/L (27-131); Bilirubin,Total 0.4 mg/dL (0.1-1.2); Lipase 97 units/L (13-60); Total Protein 8.2 g/dL (6.3-8.2)
[2016-08-08 10:52] LABS: Bilirubin,Direct < 0.2 mg/dL (0-0.2)
[2016-08-08 12:28] LABS: Bilirubin,Urine NEG (Negative); Blood,Urine MOD (Negative); Ketones,Urine NEG (Negative); Leukocyte Esterase,Urine NEG (Negative); Nitrite,Urine NEG (Negative); Urobilinogen,Urine < 2.0 mg/dL (<2.0); WBC,Urine < 1.0 /HPF (0.0-6.0)
[2016-08-08 13:58] VITALS: BP 152/88
== END 2016-08-08 14:50 | disposition home or self-care (01) ==
LOC: ED 02:21
DX: K50.90 Crohn's disease, unspecified, without complications (principal); R11.2 Nausea with vomiting, unspecified; R19.7 Diarrhea, unspecified; K76.9 Liver disease, unspecified; K85.90 Acute pancreatitis without necrosis or infection, unspecified; Z90.49 Acquired absence of other specified parts of digestive tract; F17.200 Nicotine dependence, unspecified, uncomplicated; F33.9 Major depressive disorder, recurrent, unspecified
CPT/HCPCS: 36415; 80048; 80074; 81001; 82010; 82150; 82550; 83690; 85025; 96361; 96374; 99283; J2405; J7030

== ENCOUNTER 2016-08-09 02:37 | Emergency (ER) | payer MEDICARE ==
[2016-08-09 03:36] LABS: Basophils % (Auto) 0.9 % (0.0-1.8); Eosinophils % (Auto) 2.1 % (0.0-4.3); Hematocrit 34.1 % (35.5-45.6); Hemoglobin 11.2 gm/dl (11.8-15.2); Mean Corpuscular HGB Conc 33 % (32-34); Mean Corpuscular Hemoglobin 29 pg (28-32); Mean Corpuscular Volume 90 fl (84-94); Platelet Count 146 K/mm3 (140-440); Red Blood Count 3.81 M/mm3 (3.65-5.03); Red Cell Distribution Width 14.6 % (13.2-15.2); White Blood Count 5.1 K/mm3 (4.5-11.0)
[2016-08-09 03:45] LABS: INR 1.13 (0.87-1.13)
[2016-08-09 03:46] LABS: Partial Thromboplastin Time 33.1 Sec. (24.2-36.6)
[2016-08-09 03:49] LABS: Anion Gap 17 mmol/L; BUN/Creatinine Ratio 6.25; Blood Urea Nitrogen 5 mg/dL (9-20); Calcium 8.1 mg/dL (8.4-10.2); Carbon Dioxide 22 mmol/L (22-30); Chloride 100.3 mmol/L (98-107); Glucose 123 mg/dL (75-100); Potassium 3.7 mmol/L (3.6-5.0); Sodium 136 mmol/L (137-145)
[2016-08-09 06:55] VITALS: BP 150/92
== END 2016-08-09 06:55 | disposition left against medical advice (07) ==
LOC: ED 02:37
DX: R07.9 Chest pain, unspecified (principal); R06.00 Dyspnea, unspecified; Z53.21 Procedure and treatment not carried out due to patient leaving prior to being seen by health care provider
CPT/HCPCS: 36415; 80048; 82805; 83880; 84484; 85025; 85610; 85730; 93005; 93010

== ENCOUNTER 2016-08-21 00:22 | Emergency (ER) | payer MEDICARE ==
[2016-08-21 01:02] LABS: Basophils % (Auto) 1.2 % (0.0-1.8); Hematocrit 34.6 % (35.5-45.6); Hemoglobin 11.5 gm/dl (11.8-15.2); Mean Corpuscular HGB Conc 33 % (32-34); Mean Corpuscular Hemoglobin 29 pg (28-32); Mean Corpuscular Volume 88 fl (84-94); Platelet Count 210 K/mm3 (140-440); Red Blood Count 3.93 M/mm3 (3.65-5.03); White Blood Count 4.8 K/mm3 (4.5-11.0)
[2016-08-21 01:22] LABS: Anion Gap 16 mmol/L; BUN/Creatinine Ratio 11.42; Blood Urea Nitrogen 8 mg/dL (9-20); Calcium 8.4 mg/dL (8.4-10.2); Carbon Dioxide 27 mmol/L (22-30); Chloride 101.8 mmol/L (98-107); Glucose 93 mg/dL (75-100); Potassium 3.6 mmol/L (3.6-5.0); Sodium 141 mmol/L (137-145)
[2016-08-21 02:06] LABS: Urine Drugs of Abuse Note Disclamer
[2016-08-21 02:17] LABS: Bacteria,Urine 1+ /HPF (Negative); Bilirubin,Urine NEG (Negative); Blood,Urine NEG (Negative); Ketones,Urine NEG (Negative); Leukocyte Esterase,Urine NEG (Negative); Mucus,Urine FEW /HPF; Nitrite,Urine NEG (Negative); Urobilinogen,Urine < 2.0 mg/dL (<2.0)
[2016-08-21] MEDS ORDERED: ZOFRAN ODT PO ONE (07:21)
--- NOTE | 2016-08-21 07:26 | Emergency Department Report ---
ED N/V/D HPI - General Chief complaint: Nausea/Vomiting/Diarrhea Stated complaint: ABD PAIN/VOMITING/DIZZY Time Seen by Provider: 08/21/16 07:19 Source: patient Mode of arrival: Ambulatory Limitations: Physical Limitation - History of Present Illness MD complaint: nausea, vomiting, diarrhea, abdominal pain -: Gradual Description of Vomiting: food contents Description of Diarrhea: water Associated Abdominal Pain: No Radiation: none Severity: mild Quality: cramping Consistency: intermittent Improves with: none Worsens with: none Associated Symptoms: denies: myalgias, chest pain, cough, diaphoresis, fever/ chills, headaches, loss of appetite, malaise, nausea/vomiting, rash, dysuria - Related Data Home Medications Medication Instructions Recorded Confirmed Last Taken Abacavir/Dolutegravir/Lamivudi 1 each PO QDAY 01/14/16 08/09/16 1 Day Ago [Triumeq Tablet] 1 Dicyclomine [Bentyl] 20 mg PO TID 01/14/16 08/09/16 1 Day Ago 20 Depakote ER 500 mg PO DAILY 05/05/16 08/09/16 1 Day Ago 500 risperiDONE 3 mg PO DAILY 05/05/16 08/09/16 1 Day Ago 3 Previous Rx's Medication Instructions Recorded Last Taken Type Furosemide [Lasix] 20 mg PO QDAY #7 tablet 04/12/16 1 Day Ago Rx 20 HYDROcodone/APAP 5-325 [[place] 1 - 2 each PO Q6HR PRN #14 tablet 04/12/16 1 Day Ago Rx 5/325] 1 Promethazine [Phenergan] 25 mg [place] Q6HR PRN #10 supp.rect 04/22/16 1 Day Ago Rx 25 traMADol [Ultram] 50 mg PO Q6HR PRN #14 tablet 08/07/16 1 Day Ago Rx 50 Diphenoxylate/Atropine [Lomotil] 1 tab PO QID PRN #20 tablet 08/08/16 1 Day Ago Rx 1 Prednisone [predniSONE 10 mg 10 mg PO .TAPER #1 tab.ds.pk 08/08/16 1 Day Ago Rx (6-Day Pack, 21 Tabs)] 10 Ondansetron [Zofran TAB] 8 mg PO Q8HR PRN #20 tablet 08/21/16 Unknown Rx Allergies Allergy/AdvReac Type Severity Reaction Status Date / Time No Known Allergies Allergy Verified 09/07/15 11:34 ED Review of Systems ROS: Stated complaint: ABD PAIN/VOMITING/DIZZY Other details as noted in HPI Comment: All other systems reviewed and negative ED Past Medical Hx - Past Medical History Previous Medical History?: Yes Hx Liver Disease: Yes (HEP B) Hx Sickle Cell Disease: Yes Hx Psychiatric Treatment: Yes (IP and OP MANIC DEPRESSION PTSD) Hx HIV: Yes Additional medical history: PANCREATITIS. CROHN'S - Surgical History Past Surgical History?: Yes Hx Cholecystectomy: (colon resection) Hx Appendectomy: Yes Additional Surgical History: COLON. RIGHT HIP REPLACEMENT. Tonsillectomy. left second toe removed - Social History Smoking Status: Current Every Day Smoker Substance Use Type: Alcohol - Medications Home Medications: Home Medications Medication Instructions Recorded Confirmed Last Taken Type Abacavir/Dolutegravir/Lamivudi 1 each PO QDAY 01/14/16 08/09/16 1 Day Ago History [Triumeq Tablet] 1 Dicyclomine [Bentyl] 20 mg PO TID 01/14/16 08/09/16 1 Day Ago History 20 Furosemide [Lasix] 20 mg PO QDAY #7 tablet 04/12/16 08/09/16 1 Day Ago Rx 20 HYDROcodone/APAP 5-325 [[place] 1 - 2 each PO Q6HR PRN #14 tablet 04/12/16 1 Day Ago Rx 5/325] 1 Promethazine [Phenergan] 25 mg [place] Q6HR PRN #10 supp.rect 04/22/16 08/09/16 1 Day Ago Rx 25 Depakote ER 500 mg PO DAILY 05/05/16 08/09/16 1 Day Ago History 500 risperiDONE 3 mg PO DAILY 05/05/16 08/09/16 1 Day Ago History 3 traMADol [Ultram] 50 mg PO Q6HR PRN #14 tablet 08/07/16 08/09/16 1 Day Ago Rx 50 Diphenoxylate/Atropine [Lomotil] 1 tab PO QID PRN #20 tablet 08/08/16 08/09/16 1 Day Ago Rx 1 Prednisone [predniSONE 10 mg 10 mg PO .TAPER #1 tab.ds.pk 08/08/16 08/09/16 1 Day Ago Rx (6-Day Pack, 21 Tabs)] 10 Ondansetron [Zofran TAB] 8 mg PO Q8HR PRN #20 tablet 08/21/16 Unknown Rx ED Physical Exam - General Limitations: Physical Limitation General appearance: alert, in no apparent distress - Head Head exam: Present: atraumatic, normocephalic - Eye Eye exam: Present: normal appearance - ENT ENT exam: Present: mucous membranes moist - Neck Neck exam: Present: normal inspection - Respiratory Respiratory exam: Present: normal lung sounds bilaterally. Absent: respiratory distress - Cardiovascular Cardiovascular Exam: Present: regular rate, normal rhythm. Absent: systolic murmur, diastolic murmur, rubs, gallop - GI/Abdominal GI/Abdominal exam: Present: soft, normal bowel sounds - Rectal Rectal exam: Present: deferred - Extremities Exam Extremities exam: Present: normal inspection - Back Exam Back exam: Present: normal inspection - Neurological Exam Neurological exam: Present: alert, oriented X3 - Psychiatric Psychiatric exam: Present: normal affect, normal mood - Skin Skin exam: Present: warm, dry, intact, normal color. Absent: rash ED Course Vital Signs 08/21/16 08/21/16 00:25 08:10 Temperature 98.7 F Pulse Rate 114 H 91 H Respiratory 18 16 Rate Blood Pressure 149/98 Blood Pressure 155/81 [Right] O2 Sat by Pulse 97 98 Oximetry ED Medical Decision Making - Lab Data Result diagrams: 08/21/16 00:37 08/21/16 00:37 - Medical Decision Making Patient doing well, resting , tolerating po here in the ER, labs negative ,we talked about his psych history and he denies having any suicidal ideation at this tome , No need for 1013 at this time , will dc home to his apartment. Critical care attestation.: If time is entered above; I have spent that time in minutes in the direct care of this critically ill patient, excluding procedure time. ED Disposition Clinical Impression: Vomiting, Constipation Disposition: DISCHARGED TO HOME OR SELFCARE Is pt being admited?: No Does the pt Need Aspirin: No Condition: Good Prescriptions: Ondansetron [Zofran TAB] 8 mg PO Q8HR PRN #20 tablet PRN Reason: Nausea Referrals: LISHA VILLA DPM [Primary Care Provider] - 3-5 Days Time of Disposition: 09:23
[2016-08-21 08:11] VITALS: BP 155/81
== END 2016-08-21 09:51 | disposition home or self-care (01) ==
LOC: ED 00:22
DX: K59.00 Constipation, unspecified (principal); F32.9 Major depressive disorder, single episode, unspecified; F43.10 Post-traumatic stress disorder, unspecified; K50.90 Crohn's disease, unspecified, without complications; F17.200 Nicotine dependence, unspecified, uncomplicated; Z86.19 Personal history of other infectious and parasitic diseases; Z90.49 Acquired absence of other specified parts of digestive tract; Z90.89 Acquired absence of other organs
CPT/HCPCS: 36415; 80048; 80307; 81001; 85025; 99283; G0480; 80320; 96361; 96372; 96374; 96375; J0500; J1885; J2765; J7030; Q0162

== ENCOUNTER 2016-08-21 12:11 | Emergency (ER) | payer MEDICARE ==
[2016-08-21] MEDS ORDERED: NACL 0.9% 1000 ML 2,000 ML ONE (20:41)
--- NOTE | 2016-08-21 20:47 | Emergency Department Report ---
ED General Adult HPI - General Chief complaint: Nausea/Vomiting/Diarrhea Stated complaint: ABD PAIN Time Seen by Provider: 08/21/16 20:35 Source: patient, RN notes reviewed, old records reviewed Mode of arrival: Ambulatory Limitations: No Limitations - History of Present Illness Initial comments: This is a 56-year-old male. I have evaluated him in the past. Past medical history includes Crohn's disease, HIV, psychiatric disease. The patient presents to the ER with left lower quadrant abdominal pain, nausea and vomiting. Of note, the patient presented earlier on today for similar complaints, and had a thorough and adequate examination. The patient reports vomiting "50 times." He describes emesis as whitish, nonbloody, nonbilious. He is defecating normally. There is no hematemesis, there is no bright red blood per rectum. He denies testicular pain. He describes intermittent dysuria. The left lower quadrant pain is achy, and present for weeks. It does not radiate anywhere. Of note, I have evaluated this patient personally multiple times for similar complaints. Today, the patient indicates that he is not homicidal, that he is not suicidal, and that he is allergic to "poverty", and "bullshit." -: Gradual Location: abdomen Quality: aching Consistency: intermittent Improves with: none Worsens with: none Associated Symptoms: nausea/vomiting. denies: confusion, chest pain, cough, diaphoresis, fever/chills - Related Data Home Medications Medication Instructions Recorded Confirmed Last Taken Abacavir/Dolutegravir/Lamivudi 1 each PO QDAY 01/14/16 08/09/16 1 Day Ago [Triumeq Tablet] 1 Dicyclomine [Bentyl] 20 mg PO TID 01/14/16 08/09/16 1 Day Ago 20 Depakote ER 500 mg PO DAILY 05/05/16 08/09/16 1 Day Ago 500 risperiDONE 3 mg PO DAILY 05/05/16 08/09/16 1 Day Ago 3 Previous Rx's Medication Instructions Recorded Last Taken Type Furosemide [Lasix] 20 mg PO QDAY #7 tablet 04/12/16 1 Day Ago Rx 20 HYDROcodone/APAP 5-325 [[place] 1 - 2 each PO Q6HR PRN #14 tablet 04/12/16 1 Day Ago Rx 5/325] 1 Promethazine [Phenergan] 25 mg [place] Q6HR PRN #10 supp.rect 04/22/16 1 Day Ago Rx 25 traMADol [Ultram] 50 mg PO Q6HR PRN #14 tablet 08/07/16 1 Day Ago Rx 50 Diphenoxylate/Atropine [Lomotil] 1 tab PO QID PRN #20 tablet 08/08/16 1 Day Ago Rx 1 Prednisone [predniSONE 10 mg 10 mg PO .TAPER #1 tab.ds.pk 08/08/16 1 Day Ago Rx (6-Day Pack, 21 Tabs)] 10 Dicyclomine [Bentyl] 10 mg PO QID PRN #20 capsule 08/21/16 Unknown Rx Ondansetron [Zofran Odt] 4 mg PO QID PRN #20 tab.rapdis 08/21/16 Unknown Rx Ondansetron [Zofran TAB] 8 mg PO Q8HR PRN #20 tablet 08/21/16 Unknown Rx Promethazine [Phenergan SUPPOS] 50 mg [place] Q6H PRN #30 supp.rect 08/21/16 Unknown Rx Allergies Allergy/AdvReac Type Severity Reaction Status Date / Time No Known Allergies Allergy Verified 09/07/15 11:34 ED Review of Systems ROS: Stated complaint: ABD PAIN Other details as noted in HPI Constitutional: denies: fever Eyes: denies: vision change ENT: denies: epistaxis Respiratory: denies: cough Cardiovascular: denies: syncope Gastrointestinal: abdominal pain Genitourinary: denies: testicular pain Musculoskeletal: as per HPI, arthralgia Psychiatric: anxiety. denies: auditory hallucinations, visual hallucinations, homicidal thoughts, suicidal thoughts ED Past Medical Hx - Past Medical History Previous Medical History?: Yes Hx Liver Disease: Yes (HEP B) Hx Sickle Cell Disease: Yes Hx Psychiatric Treatment: Yes (IP and OP MANIC DEPRESSION PTSD) Hx HIV: Yes Additional medical history: PANCREATITIS. CROHN'S - Surgical History Past Surgical History?: Yes Hx Cholecystectomy: (colon resection) Hx Appendectomy: Yes Additional Surgical History: COLON. RIGHT HIP REPLACEMENT. Tonsillectomy. left second toe removed - Social History Smoking Status: Unknown if ever smoked - Medications Home Medications: Home Medications Medication Instructions Recorded Confirmed Last Taken Type Abacavir/Dolutegravir/Lamivudi 1 each PO QDAY 01/14/16 08/09/16 1 Day Ago History [Triumeq Tablet] 1 Dicyclomine [Bentyl] 20 mg PO TID 01/14/16 08/09/16 1 Day Ago History 20 Furosemide [Lasix] 20 mg PO QDAY #7 tablet 04/12/16 08/09/16 1 Day Ago Rx 20 HYDROcodone/APAP 5-325 [[place] 1 - 2 each PO Q6HR PRN #14 tablet 04/12/16 1 Day Ago Rx 5/325] 1 Promethazine [Phenergan] 25 mg [place] Q6HR PRN #10 supp.rect 04/22/16 08/09/16 1 Day Ago Rx 25 Depakote ER 500 mg PO DAILY 05/05/16 08/09/16 1 Day Ago History 500 risperiDONE 3 mg PO DAILY 05/05/16 08/09/16 1 Day Ago History 3 traMADol [Ultram] 50 mg PO Q6HR PRN #14 tablet 08/07/16 08/09/16 1 Day Ago Rx 50 Diphenoxylate/Atropine [Lomotil] 1 tab PO QID PRN #20 tablet 08/08/16 08/09/16 1 Day Ago Rx 1 Prednisone [predniSONE 10 mg 10 mg PO .TAPER #1 tab.ds.pk 08/08/16 08/09/16 1 Day Ago Rx (6-Day Pack, 21 Tabs)] 10 Dicyclomine [Bentyl] 10 mg PO QID PRN #20 capsule 08/21/16 Unknown Rx Ondansetron [Zofran Odt] 4 mg PO QID PRN #20 tab.rapdis 08/21/16 Unknown Rx Ondansetron [Zofran TAB] 8 mg PO Q8HR PRN #20 tablet 08/21/16 Unknown Rx Promethazine [Phenergan SUPPOS] 50 mg [place] Q6H PRN #30 supp.rect 08/21/16 Unknown Rx ED Physical Exam - General Limitations: No Limitations General appearance: alert, in no apparent distress - Head Head exam: Present: atraumatic, normocephalic - Eye Eye exam: Present: normal appearance, PERRL, EOMI. Absent: nystagmus - ENT ENT exam: Present: normal exam, normal orophraynx, mucous membranes moist, normal external ear exam - Neck Neck exam: Present: normal inspection, full ROM. Absent: tenderness, meningismus - Respiratory Respiratory exam: Present: normal lung sounds bilaterally. Absent: respiratory distress, wheezes, rales, rhonchi, stridor, chest wall tenderness, accessory muscle use, decreased breath sounds - Cardiovascular Cardiovascular Exam: Present: normal rhythm, tachycardia, normal heart sounds. Absent: bradycardia, irregular rhythm, systolic murmur, diastolic murmur, rubs, gallop - GI/Abdominal GI/Abdominal exam: Present: soft, normal bowel sounds. Absent: distended, tenderness, guarding, rebound, rigid, pulsatile mass - Rectal Rectal exam: Present: deferred - Extremities Exam Extremities exam: Present: normal inspection, full ROM, normal capillary refill. Absent: tenderness, pedal edema, joint swelling, calf tenderness - Back Exam Back exam: Present: normal inspection, full ROM. Absent: tenderness, CVA tenderness (R), CVA tenderness (L), muscle spasm, paraspinal tenderness, vertebral tenderness - Neurological Exam Neurological exam: Present: alert, oriented X3, normal gait, other (Extraocular movements intact. Tongue midline. No facial droop. Facial sensation intact to light touch in the V1, V2, V3 distribution bilaterally. 5 and 5 strength in 4 extremities.. Sensation is intact to light touch in 4 extremities.). Absent : motor sensory deficit - Psychiatric Psychiatric exam: Present: anxious - Skin Skin exam: Present: warm, dry, intact, normal color. Absent: rash ED Course Vital Signs 08/21/16 08/21/16 08/21/16 14:58 21:10 21:11 Temperature 98.3 F 98.5 F Pulse Rate 120 H 107 H Respiratory 18 20 20 Rate Blood Pressure 149/94 Blood Pressure 151/91 [Right] O2 Sat by Pulse 99 100 100 Oximetry 08/21/16 08/21/16 08/21/16 22:00 22:30 23:51 Temperature Pulse Rate 100 H Respiratory 20 20 20 Rate Blood Pressure Blood Pressure 145/88 [Right] O2 Sat by Pulse 99 Oximetry - Reevaluation(s) Reevaluation #1: 08/21/16 21:58 Differential diagnosis: Constipation, drug-seeking behavior, acute on chronic abdominal pain,, functional abdominal pain Assessment and plan: 56-year-old male with his typical exacerbation of chronic abdominal pain. I have evaluated this patient multiple times in the past, his presentation today is identical to prior evaluations. His abdomen today is soft and benign. His tachycardia is improving. Do not believe he requires narcotic therapy. He does not meet criteria for 1013 at this time. Patient has been scanned multiple times in the past in this facility, always has a scanner demonstrates constipation. He is afebrile, and with no active vomiting , I don't believe he requires advanced imaging at this time. He will be treated symptomatically. His laboratory studies are reviewed from earlier on today, and they are essentially unremarkable, a seen a reason to obtain repeat laboratory studies at this time. Reevaluation #2: 08/21/16 22:59 patient has been observed in the ER for approximately 3-1/2 hours. Neither myself nor the nurse have witnessed the patient have any episodes of active nausea and vomiting. He was treated symptomatically. He received 3 L of IV fluid. He is sleeping comfortably on multiple examinations, resting heart rate anywhere from 99-103 beats per minute. Patient discharged at this time with nausea medicine, nonnarcotic pain medication and as needed rectal Phenergan. He can follow up with outpatient gastroenterology and primary care. - EJ/Peripheral Line Neck L Time Out Performed: Yes Indications: nurses unable to establis Skin Cleansed in Sterile Fashion: Yes Size: 20 Dressing Placed: Tegaderm Patient Tolerated Procedure: well Critical care attestation.: If time is entered above; I have spent that time in minutes in the direct care of this critically ill patient, excluding procedure time. ED Disposition Clinical Impression: Abdominal pain, History of nausea and vomiting Disposition: DISCHARGED TO HOME OR SELFCARE Is pt being admited?: No Does the pt Need Aspirin: No Condition: Stable Instructions: Acute Nausea and Vomiting (ED), Abdominal Pain (ED) Additional Instructions: Continue current outpatient medications. Take the nausea medication, pain medication as directed. If you happen to develop intractable nausea or vomiting , use the rectal Phenergan suppository as directed. Follow up with either primary care or gastroenterology within the next 7-[address] Whitlock is a local primary care doctor. Dr. Mccarty is a local gastroenterology specialist. Make certain to drink 6-7 cups of water per day. Return to the ER right away with new pain, worsened pain, migration of pain, intractable nausea or vomiting, inability to tolerate liquid feeds. Please make certain to not consume amphetamines or illegal drugs; these are bad for your health. Prescriptions: Dicyclomine [Bentyl] 10 mg PO QID PRN #20 capsule PRN Reason: Pain Ondansetron [Zofran Odt] 4 mg PO QID PRN #20 tab.rapdis PRN Reason: Nausea Promethazine [Phenergan SUPPOS] 50 mg [place] Q6H PRN #30 supp.rect PRN Reason: Nausea Referrals: PRIMARY CARE, [Primary Care Provider] - 3-5 Days АЛЕКСАНДР LOPEZ MD [Staff Physician] - 3-5 Days SHANTAL MCCARTY MD [Staff Physician] - 3-5 Days
[2016-08-21] MEDS: NACL 0.9% 1000 ML 2,000 ML IV ONE (20:57)
[2016-08-21] MEDS: REGLAN IV ONE (21:09)
[2016-08-21] MEDS: TORADOL IV ONE (22:00)
[2016-08-21] MEDS: ALUM-MAG HYDROX-SIMETH 200-200-20MG/5ML PO ONE (22:00)
[2016-08-21] MEDS: TYLENOL PO ONE (22:00)
[2016-08-21] MEDS: BENTYL IM ONE (22:01)
[2016-08-21] MEDS: BENTYL PO ONE (22:02)
[2016-08-21] MEDS: NACL 0.9% 1000 ML 1,000 ML IV ONE (22:39)
[2016-08-21 23:51] VITALS: BP 145/88
== END 2016-08-22 00:34 | disposition home or self-care (01) ==
LOC: ED 12:11
DX: R10.32 Left lower quadrant pain (principal); D57.1 Sickle-cell disease without crisis; F32.9 Major depressive disorder, single episode, unspecified; Z86.19 Personal history of other infectious and parasitic diseases; K85.90 Acute pancreatitis without necrosis or infection, unspecified; K50.90 Crohn's disease, unspecified, without complications
CPT/HCPCS: 36569; 96361; 96372; 96374; 96375; 99283; J0500; J1885; J2765; J7030

== ENCOUNTER 2016-10-06 02:10 | Emergency (ER) | payer MEDICARE ==
[2016-10-06] MEDS ORDERED: NACL 0.9% 1000 ML 1,000 ML IV ONE (02:42)
[2016-10-06 03:15] VITALS: BP 141/87
[2016-10-06 04:09] LABS: Basophils % (Auto) 1.3 % (0.0-1.8); Eosinophils % (Auto) 2.4 % (0.0-4.3); Hematocrit 32.1 % (35.5-45.6); Hemoglobin 10.6 gm/dl (11.8-15.2); Mean Corpuscular HGB Conc 33 % (32-34); Mean Corpuscular Hemoglobin 29 pg (28-32); Mean Corpuscular Volume 89 fl (84-94); Platelet Count 171 K/mm3 (140-440); Red Blood Count 3.61 M/mm3 (3.65-5.03); Red Cell Distribution Width 15.4 % (13.2-15.2); White Blood Count 5.4 K/mm3 (4.5-11.0)
[2016-10-06 04:20] LABS: INR 1.2 (0.87-1.13)
[2016-10-06 04:21] LABS: Partial Thromboplastin Time 31.8 Sec. (24.2-36.6)
[2016-10-06 04:23] LABS: Alanine Aminotransferase 19 units/L (7-56); Albumin/Globulin Ratio 0.7 %; Alkaline Phosphatase 65 units/L (35-129); Anion Gap 20 mmol/L; Blood Urea Nitrogen 12 mg/dL (9-20); Carbon Dioxide 18 mmol/L (22-30); Chloride 100.6 mmol/L (98-107); Glucose 147 mg/dL (75-100); Lipase 141 units/L (13-60); Potassium 3.4 mmol/L (3.6-5.0); Sodium 135 mmol/L (137-145); Total Protein 7.1 g/dL (6.3-8.2)
--- NOTE | 2016-10-12 10:05 | ED Elopement Review ---
ED Pt Elopement review - Results review Lab results: Laboratory Tests 10/06/16 10/06/16 10/06/16 03:06 03:13 03:14 WBC 5.4 RBC 3.61 L Hgb 10.6 L Hct 32.1 L MCV 89 MCH 29 MCHC 33 RDW 15.4 H Plt Count 171 Lymph % (Auto) 34.3 [place] % (Auto) 10.5 H Eos % (Auto) 2.4 Baso % (Auto) 1.3 Lymph # 1.9 [place] # 0.6 Eos # 0.1 Baso # 0.1 Seg Neutrophils % 51.5 Seg Neutrophils # 2.8 PT 15.1 H INR 1.20 H APTT 31.8 Sodium Potassium Chloride Carbon Dioxide Anion Gap BUN Creatinine Estimated GFR BUN/Creatinine Ratio Glucose Calcium Total Bilirubin AST ALT Alkaline Phosphatase Total Protein Albumin Albumin/Globulin Ratio Lipase Blood Type O POSITIVE Antibody Screen TNR RAVINDRA Antibody Screen Negative 10/06/16 03:14 WBC RBC Hgb Hct MCV MCH MCHC RDW Plt Count Lymph % (Auto) [place] % (Auto) Eos % (Auto) Baso % (Auto) Lymph # [place] # Eos # Baso # Seg Neutrophils % Seg Neutrophils # PT INR APTT Sodium 135 L Potassium 3.4 L Chloride 100.6 Carbon Dioxide 18 L Anion Gap 20 BUN 12 Creatinine 0.8 Estimated GFR > 60 BUN/Creatinine Ratio 15.00 Glucose 147 H Calcium 8.0 L Total Bilirubin 0.30 AST 27 ALT 19 Alkaline Phosphatase 65 Total Protein 7.1 Albumin 3.0 L Albumin/Globulin Ratio 0.7 Lipase 141 H Blood Type Antibody Screen RAVINDRA Antibody Screen - Call Back decision Pt Call Back Decision: No action required
== END 2016-10-06 03:30 | disposition left against medical advice (07) ==
LOC: ED 02:10
DX: R10.9 Unspecified abdominal pain (principal); Z53.21 Procedure and treatment not carried out due to patient leaving prior to being seen by health care provider
CPT/HCPCS: 36415; 80053; 83690; 85025; 85610; 85730; 86850; 86900; 86901; 93005; 93010

== ENCOUNTER 2017-02-02 04:36 | Emergency (ER) | payer MEDICARE ==
[2017-02-02] MEDS ORDERED: D5NS 0.2% 1,000 ML IV SCH (05:00)
[2017-02-02 05:02] VITALS: BP 148/82
[2017-02-02 06:05] LABS: Basophils % (Auto) 0.8 % (0.0-1.8); Eosinophils % (Auto) 2.7 % (0.0-4.3); Hematocrit 33.1 % (35.5-45.6); Hemoglobin 11.1 gm/dl (11.8-15.2); Mean Corpuscular HGB Conc 33 % (32-34); Mean Corpuscular Hemoglobin 32 pg (28-32); Mean Corpuscular Volume 95 fl (84-94); Platelet Count 123 K/mm3 (140-440); Red Blood Count 3.48 M/mm3 (3.65-5.03); Red Cell Distribution Width 14.1 % (13.2-15.2); Reticulocyte % 0.99 % (0.78-2.58); White Blood Count 5.5 K/mm3 (4.5-11.0)
== END 2017-02-02 20:24 | disposition left against medical advice (07) ==
LOC: ED 04:36
DX: Z53.21 Procedure and treatment not carried out due to patient leaving prior to being seen by health care provider (principal)
CPT/HCPCS: 36415; 85025; 85045

== ENCOUNTER 2017-02-04 02:51 | Emergency (ER) | payer MEDICARE ==
[2017-02-04 06:28] VITALS: BP 149/64
[2017-02-04] MEDS ORDERED: D5NS 0.2% 1,000 ML IV SCH (07:00)
[2017-02-04 07:17] LABS: Alanine Aminotransferase 22 units/L (7-56); Albumin 3.6 g/dL (3.9-5); Albumin/Globulin Ratio 0.9 %; Alkaline Phosphatase 77 units/L (35-129); Anion Gap 14 mmol/L; BUN/Creatinine Ratio 11; Blood Urea Nitrogen 9 mg/dL (9-20); Calcium 8.5 mg/dL (8.4-10.2); Carbon Dioxide 28 mmol/L (22-30); Chloride 99.5 mmol/L (98-107); Glucose 72 mg/dL (75-100); Lipase 71 units/L (13-60); Potassium 3.4 mmol/L (3.6-5.0); Sodium 138 mmol/L (137-145); Total Protein 7.7 g/dL (6.3-8.2)
[2017-02-04 07:19] LABS: Basophils % (Auto) 1.1 % (0.0-1.8); Hematocrit 35.2 % (35.5-45.6); Hemoglobin 11.8 gm/dl (11.8-15.2); Mean Corpuscular HGB Conc 34 % (32-34); Mean Corpuscular Hemoglobin 32 pg (28-32); Mean Corpuscular Volume 96 fl (84-94); Platelet Count 133 K/mm3 (140-440); Red Blood Count 3.69 M/mm3 (3.65-5.03); Red Cell Distribution Width 14.1 % (13.2-15.2); Reticulocyte % 1.29 % (0.78-2.58); White Blood Count 5.8 K/mm3 (4.5-11.0)
[2017-02-04 07:53] LABS: Bilirubin,Urine NEG (Negative); Blood,Urine NEG (Negative); Ketones,Urine NEG (Negative); Leukocyte Esterase,Urine NEG (Negative); Mucus,Urine FEW /HPF; Nitrite,Urine NEG (Negative); Urobilinogen,Urine < 2.0 mg/dL (<2.0); WBC,Urine < 1.0 /HPF (0.0-6.0)
== END 2017-02-04 13:41 | disposition left against medical advice (07) ==
LOC: ED 02:51
DX: D57.00 Hb-SS disease with crisis, unspecified (principal); Z53.21 Procedure and treatment not carried out due to patient leaving prior to being seen by health care provider
CPT/HCPCS: 36415; 80053; 81001; 83690; 85025; 85045

== ENCOUNTER 2017-09-09 01:05 | Emergency (ER) | payer MEDICARE ==
[2017-09-09 02:52] LABS: Basophils % (Auto) 0.6 % (0.0-1.8); Eosinophils % (Auto) 0.4 % (0.0-4.3); Hematocrit 37.1 % (35.5-45.6); Hemoglobin 12.8 gm/dl (11.8-15.2); Lymphocytes # (Auto) 2.6 K/mm3 (1.2-5.4); Lymphocytes % (Auto) 30.5 % (13.4-35.0); Mean Corpuscular HGB Conc 35 % (32-34); Mean Corpuscular Hemoglobin 32 pg (28-32); Mean Corpuscular Volume 93 fl (84-94); Monocytes # (Auto) 0.8 K/mm3 (0.0-0.8); Platelet Count 143 K/mm3 (140-440); Red Blood Count 3.97 M/mm3 (3.65-5.03); Red Cell Distribution Width 13.9 % (13.2-15.2)
[2017-09-09 03:51] LABS: Alanine Aminotransferase 19 units/L (7-56); Albumin 4.1 g/dL (3.9-5); BUN/Creatinine Ratio 16; Blood Urea Nitrogen 14 mg/dL (9-20); Calcium 8.5 mg/dL (8.4-10.2); Hemolysis Index 10; Lipase 33 units/L (13-60)
[2017-09-09 09:51] VITALS: BP 139/86
[2017-09-09] MEDS ORDERED: NACL 0.9% 1000 ML 1,000 ML IV ONE (10:37)
[2017-09-09] MEDS ORDERED: BENTYL PO ONE (10:37)
[2017-09-09] MEDS ORDERED: ZOFRAN IV ONE (10:37)
--- NOTE | 2017-09-09 10:42 | Emergency Department Report ---
ED Abdominal Pain HPI - General Chief Complaint: Abdominal Pain Stated Complaint: ABDOMINAL PAIN,RECTAL BLEEDING Time Seen by Provider: 09/09/17 10:10 Source: patient Mode of arrival: Ambulatory Limitations: No Limitations - History of Present Illness Initial Comments: 57-year-old male with history of HIV on antiretrovirals, history of hep b, history of Crohn with previous colon resections 3 according to the patient with history of pancreatitis here states off and on nausea vomiting diarrhea for 5 days today he noted some bright red blood on this stooll and toilet paper came to the ED for :persistent intermittent abdominal cramps, nausea vomiting diarrhea and bright red blood on the toilet paper, no fever no chills no rectal discharge MD Complaint: abdominal pain -: Gradual, days(s) Location: diffuse Radiation: none Migration to: no migration Severity: mild, moderate Severity scale (0 -10): 10 Quality: cramping Consistency: intermittent Worsens With: nothing Associated Symptoms: denies other symptoms, nausea, hematochezia. denies: vomiting, diarrhea, fever, chills, dysuria, hematemesis, melena, hematuria, anorexia, syncope - Related Data Home Medications Medication Instructions Recorded Confirmed Last Taken Abacavir/Dolutegravir/Lamivudi 1 each PO QDAY 01/14/16 08/09/16 1 Day Ago [Triumeq Tablet] ~08/08/16 1 Dicyclomine [Bentyl] 20 mg PO TID 01/14/16 08/09/16 1 Day Ago ~08/08/16 20 Depakote ER 500 mg PO DAILY 05/05/16 08/09/16 1 Day Ago ~08/08/16 500 risperiDONE 3 mg PO DAILY 05/05/16 08/09/16 1 Day Ago ~08/08/16 3 Previous Rx's Medication Instructions Recorded Last Taken Type Furosemide [Lasix] 20 mg PO QDAY #7 tablet 04/12/16 1 Day Ago Rx ~08/08/16 20 HYDROcodone/APAP 5-325 [[place] 1 - 2 each PO Q6HR PRN #14 tablet 04/12/16 1 Day Ago Rx 5/325] ~08/08/16 1 Promethazine [Phenergan] 25 mg OK Q6HR PRN #10 supp.rect 04/22/16 1 Day Ago Rx ~08/08/16 25 traMADol [Ultram] 50 mg PO Q6HR PRN #14 tablet 08/07/16 1 Day Ago Rx ~08/08/16 50 Diphenoxylate/Atropine [Lomotil] 1 tab PO QID PRN #20 tablet 08/08/16 1 Day Ago Rx ~08/08/16 1 Prednisone [predniSONE 10 mg 10 mg PO .TAPER #1 tab.ds.pk 08/08/16 1 Day Ago Rx (6-Day Pack, 21 Tabs)] ~08/08/16 10 Ondansetron [Zofran Odt] 4 mg PO QID PRN #20 tab.rapdis 08/21/16 Unknown Rx Promethazine [Phenergan SUPPOS] 50 mg OK Q6H PRN #30 supp.rect 08/21/16 Unknown Rx Dicyclomine [Bentyl] 10 mg PO QID PRN #20 capsule 09/09/17 Unknown Rx Ondansetron [Zofran TAB] 8 mg PO Q8HR PRN #20 tablet 09/09/17 Unknown Rx predniSONE [Deltasone] 50 mg PO QDAY #5 tab 09/09/17 Unknown Rx Allergies Allergy/AdvReac Type Severity Reaction Status Date / Time No Known Allergies Allergy Verified 09/07/15 11:34 ED Review of Systems ROS: Stated complaint: ABDOMINAL PAIN,RECTAL BLEEDING Other details as noted in HPI Comment: All other systems reviewed and negative Constitutional: denies: diaphoresis, fever, malaise Eyes: denies: eye discharge, vision change ENT: denies: dental pain, hearing loss, epistaxis Respiratory: denies: orthopnea, shortness of breath, SOB with exertion, SOB at rest, stridor Cardiovascular: denies: chest pain, palpitations, dyspnea on exertion, orthopnea , edema, syncope Gastrointestinal: abdominal pain, nausea, hematochezia. denies: vomiting, diarrhea, constipation, hematemesis, melena Musculoskeletal: denies: joint swelling, arthralgia Neurological: denies: numbness, paresthesias, confusion Psychiatric: denies: auditory hallucinations, homicidal thoughts, suicidal thoughts Hematological/Lymphatic: denies: easy bruising ED Past Medical Hx - Past Medical History Hx Liver Disease: Yes (HEP B) Hx Sickle Cell Disease: Yes Hx Psychiatric Treatment: Yes (IP and OP MANIC DEPRESSION PTSD) Hx HIV: Yes Additional medical history: PANCREATITIS. CROHN'S - Surgical History Hx Cholecystectomy: (colon resection) Hx Appendectomy: Yes Additional Surgical History: COLON. RIGHT HIP REPLACEMENT. Tonsillectomy. left second toe removed - Social History Smoking Status: Current Every Day Smoker Substance Use Type: Alcohol - Medications Home Medications: Home Medications Medication Instructions Recorded Confirmed Last Taken Type Abacavir/Dolutegravir/Lamivudi 1 each PO QDAY 01/14/16 08/09/16 1 Day Ago History [Triumeq Tablet] ~08/08/16 1 Dicyclomine [Bentyl] 20 mg PO TID 01/14/16 08/09/16 1 Day Ago History ~08/08/16 20 Furosemide [Lasix] 20 mg PO QDAY #7 tablet 04/12/16 08/09/16 1 Day Ago Rx ~08/08/16 20 HYDROcodone/APAP 5-325 [[place] 1 - 2 each PO Q6HR PRN #14 tablet 04/12/16 1 Day Ago Rx 5/325] ~08/08/16 1 Promethazine [Phenergan] 25 mg OK Q6HR PRN #10 supp.rect 04/22/16 08/09/16 1 Day Ago Rx ~08/08/16 25 Depakote ER 500 mg PO DAILY 05/05/16 08/09/16 1 Day Ago History ~08/08/16 500 risperiDONE 3 mg PO DAILY 05/05/16 08/09/16 1 Day Ago History ~08/08/16 3 traMADol [Ultram] 50 mg PO Q6HR PRN #14 tablet 08/07/16 08/09/16 1 Day Ago Rx ~08/08/16 50 Diphenoxylate/Atropine [Lomotil] 1 tab PO QID PRN #20 tablet 08/08/16 08/09/16 1 Day Ago Rx ~08/08/16 1 Prednisone [predniSONE 10 mg 10 mg PO .TAPER #1 tab.ds.pk 08/08/16 08/09/16 1 Day Ago Rx (6-Day Pack, 21 Tabs)] ~08/08/16 10 Ondansetron [Zofran Odt] 4 mg PO QID PRN #20 tab.rapdis 08/21/16 Unknown Rx Promethazine [Phenergan SUPPOS] 50 mg OK Q6H PRN #30 supp.rect 08/21/16 Unknown Rx Dicyclomine [Bentyl] 10 mg PO QID PRN #20 capsule 09/09/17 Unknown Rx Ondansetron [Zofran TAB] 8 mg PO Q8HR PRN #20 tablet 09/09/17 Unknown Rx predniSONE [Deltasone] 50 mg PO QDAY #5 tab 09/09/17 Unknown Rx ED Physical Exam - General Limitations: No Limitations General appearance: alert, anxious, other (mild distress) - Head Head exam: Present: atraumatic, normocephalic - ENT ENT exam: Present: normal exam, normal orophraynx - Neck Neck exam: Present: normal inspection. Absent: tenderness, meningismus - Respiratory Respiratory exam: Present: normal lung sounds bilaterally. Absent: respiratory distress, wheezes, rales, rhonchi, stridor - Cardiovascular Cardiovascular Exam: Present: regular rate, normal rhythm - GI/Abdominal GI/Abdominal exam: Present: soft, tenderness, other (question of diffuse mild tenderness with deep palpation no rebound or guarding). Absent: guarding, rebound, rigid, mass, pulsatile mass - Rectal Rectal exam: Present: other (no blood appreciated) - Back Exam Back exam: Present: normal inspection. Absent: CVA tenderness (L), muscle spasm , paraspinal tenderness, vertebral tenderness - Neurological Exam Neurological exam: Present: alert, oriented X3, CN II-XII intact. Absent: motor sensory deficit - Psychiatric Psychiatric exam: Present: normal affect, anxious. Absent: homicidal ideation, suicidal ideation - Skin Skin exam: Present: warm ED Course Vital Signs 09/09/17 09/09/17 09/09/17 02:13 02:27 09:18 Temperature 98.4 F 98.4 F Pulse Rate 84 Respiratory 18 20 Rate Blood Pressure 149/97 149/57 Blood Pressure 149/97 [Right] O2 Sat by Pulse 100 96 Oximetry 09/09/17 09/09/17 09:30 09:45 Temperature 97.9 F Pulse Rate Respiratory 18 Rate Blood Pressure 135/84 139/86 Blood Pressure [Right] O2 Sat by Pulse 97 99 Oximetry ED Medical Decision Making - Lab Data Result diagrams: 09/09/17 02:41 09/09/17 02:41 - Radiology Data Radiology results: report reviewed - Medical Decision Making CT shows nothing acute evidence of obstruction or perforation or abscess, urine is negative lipase and chemistries unremarkable CBC is mild white count elevation, symptoms are likely representing a Crohn's exacerbation, CT did show some constipation but no obstruction, he is no acute surgical abdomen at this time and is felt to be stable for outpatient follow-up we will continue his Zofran with 5 days of steroid with some Crohn's exacerbation but stable for outpatient follow-up. Critical care attestation.: If time is entered above; I have spent that time in minutes in the direct care of this critically ill patient, excluding procedure time. ED Disposition Clinical Impression: Abdominal pain, Crohns disease, Constipation Disposition: TO HOME OR SELFCARE Is pt being admited?: No Condition: Stable Instructions: Crohn Disease (ED), Acute Abdominal Pain (ED) Additional Instructions: Return immediately if new or alarming symptoms see her doctor in 2 days return especially if having worsening pain bleeding fever or other problems Prescriptions: Dicyclomine [Bentyl] 10 mg PO QID PRN #20 capsule PRN Reason: Pain Ondansetron [Zofran TAB] 8 mg PO Q8HR PRN #20 tablet PRN Reason: Nausea predniSONE [Deltasone] 50 mg PO QDAY #5 tab Referrals: CHASE LANDIN MD [Other] - 3-5 Days Time of Disposition: 14:04
--- NOTE | 2017-09-09 12:23 | Cat Scan Report ---
CT scan of abdomen and pelvis with IV contrast: History: Abdominal pain. Findings Normal lung bases. No pleural pericardial effusion. Subcentimeter hypodensities liver probably cysts. Normal pancreas spleen and gallbladder. Normal adrenals,kidney parenchyma and bladder. No free intraperitoneal fluid or air. No evidence of adenopathy. Atherosclerotic abdominal aorta without aneurysm. Gaseous colon with moderate amount of stool in colon. No bowel distention or wall thickening. No evidence of appendicitis or diverticulitis. Impression: Subcentimeter hypodensities liver probably a cyst. Gaseous colon with moderate to large volume stool in colon.
[2017-09-09] MEDS ORDERED: NORCO 5/325 PO ONE (13:54)
== END 2017-09-09 14:28 | disposition home or self-care (01) ==
LOC: ED 01:05
DX: K50.90 Crohn's disease, unspecified, without complications (principal); K59.00 Constipation, unspecified; F17.200 Nicotine dependence, unspecified, uncomplicated
CPT/HCPCS: 36415; 74177; 80053; 83690; 85025; 96361; 96374; 99284; J2405; J7030; Q9967